=== PATIENT | female | born 1965 | race Caucasian/White ===

== ENCOUNTER 2017-09-18 06:27 | Day surgery (SDC) | payer OTHER ==
[~2017-09-18] VITALS: Ht 165.1 cm; Wt 70.5 kg
[~2017-09-18 06:27] MED LIST: ALBU6.7H INH; AMBI10TA PO; AMLO10 PO; ASPI-516 CHEW; ATOR80TA PO; BENA25CA4 PO; CARD240C6 PO; CARD4TAB2 PO; CARV3.125 PO; CITA-48 PO; CLAR10TA7 PO; CLON-352 PO; CLON0.1T PO; DEXI60CA3 PO; DIPH50TA PO; DOXA1 PO; EPIP0.3I IM; EPIP0.3I SQ; HYDR-3580 PO; HYDR25TA5 PO; INSU100V3 SQ; IPRASOL INH; LANTUS2P SQ; LEVA500T33 PO; LEVEMIR SQ; LIPI10TA PO; LORA0.5T PO; METO10TA PO; MONT10TA2 PO; NOVORP2 SQ; OXYGENDME NAS.CANULA; PRED20 PO; PROC25SU22 RECTAL; PROT40TA PO; SPIRCAP INH; SYMB160A INH; SYMB80AE INH; TRAZ50TA12 PO; VIST25CA PO; Z.0.OXYGENDME NC; ZANT150T2 PO; [UNRECOGNIZED DRUG - CODE] SQ
[2017-09-18 06:49] VITALS: BP 136/93; PULSE 94; RESP 18; TEMP 97.7; O2SAT 95
[2017-09-18] MEDS ORDERED: CHLORHEXIDINE GLUCONATE 2 % 1 PACK (2 CLOTHS) TOPICAL SCH (07:00)
[2017-09-18] MEDS ORDERED: SODIUM CHLORIDE 0.9% 1000 ML IV SCH (07:00)
[2017-09-18] MEDS ORDERED: VANCOMYCIN 1000 MG/NS 250 ML - implanted port/tunneled catheter IV SCH ×2 (07:00)
[2017-09-18] MEDS ORDERED: FLUT50SP EACH NARE (07:08)
[2017-09-18] MEDS ORDERED: BUPR150T5 PO (07:08)
[2017-09-18] MEDS ORDERED: VICT18IN SQ (07:08)
[2017-09-18] MEDS ORDERED: LORA0.5T PO (07:08)
[2017-09-18] MEDS ORDERED: BENA25CA4 (07:08)
[2017-09-18] MEDS ORDERED: [UNRECOGNIZED DRUG - CODE] (07:08)
[2017-09-18] MEDS ORDERED: SPIR25TA3 PO (07:08)
[2017-09-18] MEDS ORDERED: HYDR-3799 PO (07:08)
[2017-09-18] MEDS ORDERED: ZOFR4TAB PO (07:08)
[2017-09-18 07:41] LABS: INTERNATIONAL NORMALIZED RATIO 1.1 RATIO; PROTHROMBIN TIME - PATIENT 10.7 SEC (9.8-11.6)
[2017-09-18] MEDS ORDERED: LIDOCAINE 1%/EPINEPHrine 1:100,000 SOLN 30 ML VIAL ONE (07:45)
[2017-09-18] MEDS ORDERED: fentaNYL CITRATE 250 MCG/5 ML AMP ONE (08:10)
[2017-09-18] MEDS ORDERED: MIDAZOLAM HCL 5 MG/5 ML VIAL ONE (08:10)
[2017-09-18 08:13] LABS: AUTOMATED NEUTROPHIL # 4.6 TH/MM3 (1.8-7.7); BASOPHIL # 0.1 TH/MM3 (0-0.2); BASOPHIL % 0.8 % (0.0-2.0); EOSINOPHIL # 0.1 TH/MM3 (0-0.4); EOSINOPHIL % 1.1 % (0.0-4.0); HEMATOCRIT 41.3 % (35.0-46.0); HEMOGLOBIN 14.4 GM/DL (11.6-15.3); LYMPH % 29.5 % (9.0-44.0); LYMPHOCYTE # 2.2 TH/MM3 (1.0-4.8); MEAN CELL VOLUME 87.5 FL (80.0-100.0); MEAN CORPUSCULAR HEMOGLOBIN 30.5 PG (27.0-34.0); MEAN CORPUSCULAR HGB CONC 34.9 % (32.0-36.0); MEAN PLATELET VOLUME 9.2 FL (7.0-11.0); MONO % 7.6 % (0.0-8.0); MONOCYTE # 0.6 TH/MM3 (0-0.9); PLATELET COUNT 268 TH/MM3 (150-450); RED BLOOD COUNT 4.72 MIL/MM3 (4.00-5.30); RED CELL DISTRIBUTION WIDTH 12.9 % (11.6-17.2); WHITE BLOOD COUNT 7.5 TH/MM3 (4.0-11.0)
[2017-09-18 09:00] VITALS: BP 136/81; PULSE 107; RESP 16; TEMP 97.5; O2SAT 93
[2017-09-18 09:15] VITALS: BP 126/85; PULSE 96; RESP 16; O2SAT 93
[2017-09-18] MEDS ORDERED: SODIUM CHLORIDE 0.9% FLUSH 10 ML FLUSH IVF PRN (09:15)
[2017-09-18 09:45] VITALS: BP 104/69; PULSE 96; RESP 16; O2SAT 92
--- NOTE | 2017-09-18 10:03 | RADRPT ---
EXAM DATE: 09/18/2017 9:08 AM EDT AGE/SEX: 51 years / Female INDICATIONS: Patient presents with pulmonary eosinophilia and is in need of a port placement for jose atment. CLINICAL DATA: This is the patient's initial encounter. Patient reports that signs and symptoms have been present for 4 - 6 months and indicates a pain score of 0/10. MEDICAL/SURGICAL HISTORY: Asthma. Hypertension. DepressionSleep ApneaHyperlipidemiaDiabetic ty pe IIGERDHyperaldosteronismOvarian Cancer Hysterectomy. COMPARISON: No prior exams available for comparison. IMAGE SERIES: 0 SEDATION TIME (min): 30 MEDICATION(S): 2.5mg midazolam (Versed) IV 125mcg fentanyl (Sublimaze) IV DEVICE(S): Right 8F Power Port . . PROCEDURE : 1. Continuous pulse oximetry and EKG monitoring. 2. Intravenous conscious sedation. 3. Ultrasound guidance for venous access. The patient was placed supine. The neck was prepped in sterile fashion. Full sterile technique was u sed, including cap, mask, sterile gloves and gown, and a large sterile sheet. Hand hygiene and 2% ch lorhexidine Betadine was utilized per protocol for cutaneous antisepsis with appropriate dry time for site. Sterile gel and sterile probe cover were utilized for ultrasound guidance. The skin and sub cutaneous tissues were infiltrated with local anesthetic solution. Under direct ultrasound guidance, central venous access was accomplished in the targeted vessel. The ultrasound images depicting access guidance were stored and saved to PACS for permanent record. A s ubcutaneous pocket was created using blunt dissection. The port was introduced to the pocket. The c atheter tubing was fed through a subcutaneous tunnel to the venotomy site. The catheter tubing was c ut to a suitable length and then was introduced through a valved Peel-Away sheath and positioned with catheter tubing tip at the cavo-atrial junction level. The pocket incision was closed with subcutic ular Vicryl suture. Steri-Strips were applied. The port was flushed and locked with heparin solutio n per protocol. Sterile dressing was applied to the site. The patient tolerated the procedure well. Postprocedure chest radiograph reveals good positioning of the port with no complication. Conscious sedation was performed with the prescribed dosages and duration as above in the presence of an independent trained radiology nurse to assist in the monitoring of the patient. EKG and oximetry remained stable throughout the procedure. The patient tolerated the procedure well and there were no complications. The patient was sent to post anesthesia recovery in stable condition. CONCLUSION: Uncomplicated ultrasound guided implanted central venous port catheter placement as described in [place] above. An 8 [place] Power port was placed. Electronically signed by: Tony Reilly MD 09/18/2017 10:01 AM EDT
[2017-09-18 10:15] VITALS: BP 103/70; PULSE 92; RESP 16; O2SAT 96
--- NOTE | 2017-09-18 11:03 | RADRPT ---
EXAM DATE: 09/18/2017 9:26 AM EDT AGE/SEX: 51 years / Female INDICATIONS: Post central line placement. CLINICAL DATA: This is the patient's initial encounter. Patient reports that signs and symptoms have been present for 1 day and indicates a pain score of 0/10. MEDICAL/SURGICAL HISTORY: . Chronic obstructive pulmonary disease. asthma. . Zfwxa-a-cuff. COMPARISON: [facility], CHEST SINGLE AP, 07/25/2015. . FINDINGS: Jovifm-i-Eesj in good position. A second central line is not visualized. No pneumothorax. Lungs are c lear. The heart and pulmonary vascularity are normal. CONCLUSION: Tzuxau-h-Nlbq in good position. No pneumothorax. A second central line is not visualized. Electronically signed by: Mina Holcomb MD 09/18/2017 11:01 AM EDT
== END 2017-09-18 09:00 | disposition home or self-care (01) ==
LOC: HRIP 06:27 → HROP 06:27
PROVIDERS: ATTEND Family Medicine
DX: J82 Pulmonary eosinophilia, not elsewhere classified (principal); E78.5 Hyperlipidemia, unspecified; K21.9 Gastro-esophageal reflux disease without esophagitis; E26.9 Hyperaldosteronism, unspecified; G47.30 Sleep apnea, unspecified; F32.9 Major depressive disorder, single episode, unspecified; J44.9 Chronic obstructive pulmonary disease, unspecified; E87.1 Hypo-osmolality and hyponatremia; E11.42 Type 2 diabetes mellitus with diabetic polyneuropathy; E11.65 Type 2 diabetes mellitus with hyperglycemia; I20.9 Angina pectoris, unspecified; Z79.4 Long term (current) use of insulin; N18.2 Chronic kidney disease, stage 2 (mild); I13.10 Hypertensive heart and chronic kidney disease without heart failure, with stage 1 through stage 4 chronic kidney disease, or unspecified chronic kidney disease; E11.22 Type 2 diabetes mellitus with diabetic chronic kidney disease; F41.1 Generalized anxiety disorder; K76.0 Fatty (change of) liver, not elsewhere classified; R00.0 Tachycardia, unspecified; L50.0 Allergic urticaria; Z01.818 Encounter for other preprocedural examination
CPT/HCPCS: 36561; 71045; 76937; 77001; 85025; 85610; 85730; 99152; 99153; C1788; J1642; J2250; J3010; J3370; J7030; J7050

== ENCOUNTER 2018-01-29 17:33 | Inpatient (IN) ==
[2018-01-29] MEDS ORDERED: MethylPREDNISolone Sod Succinate Inj 125 MG/2 ML Vial IV.PUSH ONE (21:28)
[2018-01-29] MEDS ORDERED: Sod Chloride 0.9% Inj 1,000 ML IV.SIG SCH (21:30)
--- NOTE | 2018-01-29 22:01 | XR ---
EXAM DATE: 01/29/2018 9:57 PM EDT AGE/SEX: 52 years / Female INDICATIONS: Fever. Short of breath. CLINICAL DATA: This is the patient's initial encounter. Patient reports that signs and symptoms have been present for 1 day and indicates a pain score of 4/10. MEDICAL/SURGICAL HISTORY: . Chronic obstructive pulmonary disease. asthma. . Pyxxb-a-hbjb. COMPARISON: [facility], CHEST SINGLE AP, 09/18/2017. . FINDINGS: A single AP view of the chest demonstrates the lungs to be symmetrically aerated without evidence of mass, infiltrate or effusion. The cardiomediastinal contours are unremarkable. Osseous structures a re intact. Right IJ Wujnmb-b-Gtzr catheter with the tip projecting over the central venous system. CONCLUSION: No acute cardiopulmonary process. Electronically signed by: Isauro Kenney MD 01/29/2018 10:00 PM EDT
--- NOTE | 2018-01-29 22:08 | ED ---
HPI General Chief Complaint: Respiratory Symptoms Stated Complaint: pain in joints, cough Time Seen by Provider: 01/29/18 21:17 Source: patient and old records reviewed Mode of arrival: ambulatory Limitations: no limitations History of Present Illness MD Complaint: Reports cough Onset (ago): day(s) (4) Consistency/Duration: constant and progressively worsening Relieving factors: nothing Exacerbating factors: nothing Known history of: Reports COPD and diabetes Associated symptoms: Reports fever, cough, nausea/vomiting and other ( Arthralgias and myalgias) Treatment prior to arrival: Reports oxygen, bronchodilator and other (Prednisone ) Related Data Home oxygen amount: 2 liters Home Medications Medication Instructions Recorded Confirmed aspirin 81 mg PO DAILY 01/30/18 01/30/18 budesonide-formoterol [Symbicort] 2 puff INHALATION BID 01/30/18 01/30/18 clonidine HCl 0.1 mg PO DAILY PRN 01/30/18 01/30/18 diphenhydramine HCl [Benadryl] 25 mg PO DAILY PRN MDD 25mg 01/30/18 01/30/18 doxazosin [Cardura XL] 25 mg PO DAILY 01/30/18 01/30/18 epinephrine [EpiPen] 0.3 mg IM Q15M PRN MDD .9mg 01/30/18 01/30/18 hydrochlorothiazide 25 mg PO DAILY 01/30/18 01/30/18 insulin degludec [Tresiba 60 unit SUBCUT DAILY 01/30/18 01/30/18 FlexTouch U-100] lansoprazole [Prevacid 24Hr] 15 mg PO DAILY 01/30/18 01/30/18 liraglutide [Victoza 2-Brown] 50 mg SUBCUT DAILY 01/30/18 01/30/18 prednisone 20 mg PO BID 01/30/18 01/30/18 Allergies Allergy/AdvReac Type Severity Reaction Status Date / Time azithromycin Allergy Severe Verified 09/18/17 06:49 banana Allergy Severe Verified 09/18/17 06:49 benazepril Allergy Severe Verified 09/18/17 06:49 captopril Allergy Severe Verified 09/18/17 06:49 egg Allergy Severe Verified 09/18/17 06:49 enalaprilat Allergy Severe Verified 09/18/17 06:49 escitalopram Allergy Severe Verified 09/18/17 06:49 fosinopril Allergy Severe Verified 09/18/17 06:49 iodine Allergy Severe Verified 09/18/17 06:49 lisinopril Allergy Severe Verified 09/18/17 06:49 losartan Allergy Severe Verified 09/18/17 06:49 penicillin G Allergy Severe SOB Verified 09/18/17 06:49 potassium iodide Allergy Severe Verified 09/18/17 06:49 povidone-iodine Allergy Severe Verified 09/18/17 06:49 quinapril Allergy Severe Verified 09/18/17 06:49 sodium iodide Allergy Severe Verified 09/18/17 06:49 sodium iodide Allergy Severe Verified 09/18/17 06:49 *MDRO Multi-Drug Resistant AdvReac Unknown Uncoded 09/18/17 06:49 Organism Review of Systems ROS: all other systems reviewed are negative [facility] Medical History Medical History COPD (chronic obstructive pulmonary disease) (Chronic) Diabetes (Chronic) Hypertension (Chronic) Family History Family History Other Hypertension Lung disease Social History Social History Substance History: No History of Abuse Second Hand Smoke Exposure: No Smoking Status: Never smoker Tobacco Type: Cigarettes How Often Do You Have a Drink Containing Alcohol: Never Recent Travel in [facility] within the Last 8 Weeks: No Recent Out of Country Travel within the Last 8 Weeks: No Exam Const General: cooperative, healthy appearing, comfortable, no acute distress, well developed and well groomed Orientation: alert, awake and oriented x3 HENMT Head: normal to inspection, normocephalic and atraumatic Eyes Alignment and Position: alignment normal Conjunctivae: conjunctivae normal Sclera: sclerae normal EOM: EOM intact bilaterally Neck Neck: normal visual inspection and full ROM Chest Chest: normal inspection of the chest Resp Effort & Inspection: normal respiratory effort and labored Auscultation: diminished lung sounds and wheezes Cardio Rate: tachycardic Rhythm: regular rhythm GI Inspection: normal to inspection Palpation: soft Back/Spine/Pelvis Cervical Spine: cervical ROM normal Thoracic/Lumbar Spine: thoraco-lumbar ROM normal Skin General: no rashes or lesions noted and turgor normal Neuro General: alert, awake, oriented x3, moves all extremities and CN's II-XI intact bilaterally Extrem General: normal to inspection and full ROM Psych Appearance: grossly normal Mental Status: mental status grossly normal Speech and Movement: speech and movement normal Mood: congruent mood Affect: normal affect Attitude: cooperative Thought Process: normal Thought Content: normal Judgment: judgment good Course Initial Documented Vital Signs Temperature 98.5 F 01/29/18 17:58 Pulse Rate 122 H 01/29/18 17:58 Respiratory Rate 20 01/29/18 17:58 Blood Pressure 134/99 H 01/29/18 17:58 Pulse Oximetry 96 01/29/18 17:58 Last Documented Vital Signs Temperature 97.8 F 02/01/18 08:00 Pulse Rate 92 H 02/01/18 12:22 Respiratory Rate 16 02/01/18 12:22 Blood Pressure 181/86 H 02/01/18 08:00 Pulse Oximetry 96 02/01/18 08:00 Medical Decision Making MDM Narrative Medical decision making narrative: This is a patient with a history of COPD who presents complaining with about a 4-day history of cough associated with myalgias, arthralgias, subjective fever and nausea/vomiting/diarrhea. On exam, she is tachycardic. Lungs have diminished breath sounds with wheezing. Septic workup has been initiated. She is being treated with stacked duo nebs and IV Solu-Medrol. On reassesment patient continues to wheeze significantly. Labs demonstrate an elevated lactic acid which I suspect is in the setting of dehydration in the absence of other sirs criteria. Chest x-ray was negative for pneumonia. Patient was given a dose of Levaquin in the setting of COPD exacerbation. She will be admitted for continued respiratory management. Medical Screen Exam Complete: Yes Emergency Medical Condition: Yes Differential Diagnosis Differential Diagnosis: Differential diagnosis of dyspnea includes but is not limited to congestive heart failure, pneumonia, wheezing, pneumothorax, pulmonary embolism Medical Records Medical records reviewed: Yes I reviewed the patient's medical records. Lab Data Result diagrams: 01/31/18 04:20 01/31/18 04:20 Lab Results 01/29/18 01/29/18 01/29/18 Range/Units 22:45 22:48 22:48 WBC 10.5 (4.0-11.0) th/mm3 RBC 4.81 (4.00-5.30) mil/mm3 Hgb 15.0 (11.6-15.3) gm/dL Hct 42.6 (35.0-46.0) % MCV 88.6 (80.0-100.0) fL MCH 31.3 (27.0-34.0) pg MCHC 35.3 (32.0-36.0) % RDW 13.1 (11.6-17.2) % Plt Count 306 (150-450) th/mm3 MPV 8.7 (7.0-11.0) fL Neut % (Auto) 63.4 (16.0-70.0) % Lymph % (Auto) 21.9 (9.0-44.0) % [place] % (Auto) 14.1 H (0.0-8.0) % Eos % (Auto) 0.1 (0.0-4.0) % Baso % (Auto) 0.5 (0.0-2.0) % Neut # (Auto) 6.7 (1.8-7.7) th/mm3 Lymph # (Auto) 2.3 (1.0-4.8) th/mm3 [place] # (Auto) 1.5 H (0.0-0.9) th/mm3 Eos # (Auto) 0.0 (0.0-0.4) th/mm3 Baso # (Auto) 0.1 (0.0-0.2) th/mm3 WBC Differential . Differential Comment Auto diff final Puncture Site Patient Temperature O2 Saturation (90-100) % ABG pH (7.380-7.420) ABG pCO2 (38-42) mmHg ABG pO2 (61-120) mmHg ABG HCO3 (22-26) mmol/L ABG O2 Content (12.0-20.0) Vol % ABG Base Excess (-2-2) mmol/L ABG Methemoglobin (0-2) % Gomez Test Hemoglobin (12.0-16.0) G/DL Carboxyhemoglobin (0-4) % O2 Delivery Device Liter Flow L/M Critical Value Sodium 130 L (136-145) meq/L Potassium 3.3 L (3.5-5.1) meq/L Chloride 91 L (98-107) meq/L Carbon Dioxide 25.3 (21.0-32.0) meq/L Anion Gap 14 (5-15) meq/L BUN 16 (7-18) mg/dL Creatinine 1.34 H (0.50-1.00) mg/dL Estimated GFR 41 L (>89) mL/min POC Glucose (68-110) mg/dl Random Glucose 433 H (74-106) mg/dL Lactic Acid 3.5 H (0.4-2.0) mmol/L Calcium 9.0 (8.5-10.1) mg/dL Magnesium 1.6 (1.5-2.5) mg/dL Total Bilirubin 0.3 (0.2-1.0) mg/dL AST 17 (15-37) U/L ALT 28 (10-53) U/L Alkaline Phosphatase 114 (45-117) U/L Troponin I Less than 0.02 L (0.02-0.05) ng/mL Total Protein 8.5 H (6.4-8.2) g/dL Albumin 3.5 (3.4-5.0) g/dL Urine Color (Yellw/Straw) Urine Clarity (Clear) Urine pH (5.0-8.5) Ur Specific [place] (1.002-1.035) Urine Protein (Neg-Trace) mg/dL Urine Glucose (UA) (Negative) mg/dL Urine Ketones (Negative) mg/dL Urine Occult Blood (Negative) Urine Nitrate (Negative) Urine Bilirubin (Negative) Urine Urobilinogen (Less than 2) mg/dL Ur Leukocyte Esterase (Negative) Urine RBC (0-3) /hpf Urine WBC (0-5) /hpf Ur Squamous Epith Cells (0-5) /hpf Ur Transition Epith Cell (None) /hpf Ur Renal Epithelial Cell (None) /hpf Urine Bacteria (None) /hpf Hyaline Casts (0-3) /lpf Urine Mucus (Occasional) /lpf Micro UA Comment Ur Microscopic Review Urine Culture Comments Nasal Screen MRSA (PCR) (Negative) 01/30/18 01/30/18 01/30/18 Range/Units 00:02 00:06 01:52 WBC (4.0-11.0) th/mm3 RBC (4.00-5.30) mil/mm3 Hgb (11.6-15.3) gm/dL Hct (35.0-46.0) % MCV (80.0-100.0) fL MCH (27.0-34.0) pg MCHC (32.0-36.0) % RDW (11.6-17.2) % Plt Count (150-450) th/mm3 MPV (7.0-11.0) fL Neut % (Auto) (16.0-70.0) % Lymph % (Auto) (9.0-44.0) % [place] % (Auto) (0.0-8.0) % Eos % (Auto) (0.0-4.0) % Baso % (Auto) (0.0-2.0) % Neut # (Auto) (1.8-7.7) th/mm3 Lymph # (Auto) (1.0-4.8) th/mm3 [place] # (Auto) (0.0-0.9) th/mm3 Eos # (Auto) (0.0-0.4) th/mm3 Baso # (Auto) (0.0-0.2) th/mm3 WBC Differential Differential Comment Puncture Site Patient Temperature O2 Saturation (90-100) % ABG pH (7.380-7.420) ABG pCO2 (38-42) mmHg ABG pO2 (61-120) mmHg ABG HCO3 (22-26) mmol/L ABG O2 Content (12.0-20.0) Vol % ABG Base Excess (-2-2) mmol/L ABG Methemoglobin (0-2) % Gomez Test Hemoglobin (12.0-16.0) G/DL Carboxyhemoglobin (0-4) % O2 Delivery Device Liter Flow L/M Critical Value Sodium (136-145) meq/L Potassium (3.5-5.1) meq/L Chloride (98-107) meq/L Carbon Dioxide (21.0-32.0) meq/L Anion Gap (5-15) meq/L BUN (7-18) mg/dL Creatinine (0.50-1.00) mg/dL Estimated GFR (>89) mL/min POC Glucose 425 H (68-110) mg/dl Random Glucose (74-106) mg/dL Lactic Acid 4.6 H* (0.4-2.0) mmol/L Calcium (8.5-10.1) mg/dL Magnesium (1.5-2.5) mg/dL Total Bilirubin (0.2-1.0) mg/dL AST (15-37) U/L ALT (10-53) U/L Alkaline Phosphatase (45-117) U/L Troponin I (0.02-0.05) ng/mL Total Protein (6.4-8.2) g/dL Albumin (3.4-5.0) g/dL Urine Color Yellow (Yellw/Straw) Urine Clarity Cloudy H (Clear) Urine pH 6.0 (5.0-8.5) Ur Specific [place] 1.021 (1.002-1.035) Urine Protein 30 H (Neg-Trace) mg/dL Urine Glucose (UA) 500 or greater (Negative) mg/dL Urine Ketones Negative (Negative) mg/dL Urine Occult Blood Small H (Negative) Urine Nitrate Negative (Negative) Urine Bilirubin Negative (Negative) Urine Urobilinogen Less than 2 (Less than 2) mg/dL Ur Leukocyte Esterase Large H (Negative) Urine RBC 10 H (0-3) /hpf Urine WBC 123 H (0-5) /hpf Ur Squamous Epith Cells 6 (0-5) /hpf Ur Transition Epith Cell 2 (None) /hpf Ur Renal Epithelial Cell 1 (None) /hpf Urine Bacteria Occasional H (None) /hpf Hyaline Casts 23 (0-3) /lpf Urine Mucus Moderate H (Occasional) /lpf Micro UA Comment Culture indicated Ur Microscopic Review Not Reportable Urine Culture Comments Culture indicated Nasal Screen MRSA (PCR) (Negative) 01/30/18 01/30/18 01/30/18 Range/Units 07:00 08:19 10:06 WBC 8.7 (4.0-11.0) th/mm3 RBC 4.35 (4.00-5.30) mil/mm3 Hgb 13.5 (11.6-15.3) gm/dL Hct 40.3 (35.0-46.0) % MCV 92.7 D (80.0-100.0) fL MCH 31.1 (27.0-34.0) pg MCHC 33.5 (32.0-36.0) % RDW 13.3 (11.6-17.2) % Plt Count 265 (150-450) th/mm3 MPV 8.8 (7.0-11.0) fL Neut % (Auto) (16.0-70.0) % Lymph % (Auto) (9.0-44.0) % [place] % (Auto) (0.0-8.0) % Eos % (Auto) (0.0-4.0) % Baso % (Auto) (0.0-2.0) % Neut # (Auto) (1.8-7.7) th/mm3 Lymph # (Auto) (1.0-4.8) th/mm3 [place] # (Auto) (0.0-0.9) th/mm3 Eos # (Auto) (0.0-0.4) th/mm3 Baso # (Auto) (0.0-0.2) th/mm3 WBC Differential Differential Comment Puncture Site Patient Temperature O2 Saturation (90-100) % ABG pH (7.380-7.420) ABG pCO2 (38-42) mmHg ABG pO2 (61-120) mmHg ABG HCO3 (22-26) mmol/L ABG O2 Content (12.0-20.0) Vol % ABG Base Excess (-2-2) mmol/L ABG Methemoglobin (0-2) % Gomez Test Hemoglobin (12.0-16.0) G/DL Carboxyhemoglobin (0-4) % O2 Delivery Device Liter Flow L/M Critical Value Sodium (136-145) meq/L Potassium (3.5-5.1) meq/L Chloride (98-107) meq/L Carbon Dioxide (21.0-32.0) meq/L Anion Gap (5-15) meq/L BUN (7-18) mg/dL Creatinine (0.50-1.00) mg/dL Estimated GFR (>89) mL/min POC Glucose 530 H* (68-110) mg/dl Random Glucose (74-106) mg/dL Lactic Acid 2.5 H (0.4-2.0) mmol/L Calcium (8.5-10.1) mg/dL Magnesium (1.5-2.5) mg/dL Total Bilirubin (0.2-1.0) mg/dL AST (15-37) U/L ALT (10-53) U/L Alkaline Phosphatase (45-117) U/L Troponin I (0.02-0.05) ng/mL Total Protein (6.4-8.2) g/dL Albumin (3.4-5.0) g/dL Urine Color (Yellw/Straw) Urine Clarity (Clear) Urine pH (5.0-8.5) Ur Specific [place] (1.002-1.035) Urine Protein (Neg-Trace) mg/dL Urine Glucose (UA) (Negative) mg/dL Urine Ketones (Negative) mg/dL Urine Occult Blood (Negative) Urine Nitrate (Negative) Urine Bilirubin (Negative) Urine Urobilinogen (Less than 2) mg/dL Ur Leukocyte Esterase (Negative) Urine RBC (0-3) /hpf Urine WBC (0-5) /hpf Ur Squamous Epith Cells (0-5) /hpf Ur Transition Epith Cell (None) /hpf Ur Renal Epithelial Cell (None) /hpf Urine Bacteria (None) /hpf Hyaline Casts (0-3) /lpf Urine Mucus (Occasional) /lpf Micro UA Comment Ur Microscopic Review Urine Culture Comments Nasal Screen MRSA (PCR) (Negative) 01/30/18 01/30/18 01/30/18 Range/Units 10:06 12:44 12:54 WBC (4.0-11.0) th/mm3 RBC (4.00-5.30) mil/mm3 Hgb (11.6-15.3) gm/dL Hct (35.0-46.0) % MCV (80.0-100.0) fL MCH (27.0-34.0) pg MCHC (32.0-36.0) % RDW (11.6-17.2) % Plt Count (150-450) th/mm3 MPV (7.0-11.0) fL Neut % (Auto) (16.0-70.0) % Lymph % (Auto) (9.0-44.0) % [place] % (Auto) (0.0-8.0) % Eos % (Auto) (0.0-4.0) % Baso % (Auto) (0.0-2.0) % Neut # (Auto) (1.8-7.7) th/mm3 Lymph # (Auto) (1.0-4.8) th/mm3 [place] # (Auto) (0.0-0.9) th/mm3 Eos # (Auto) (0.0-0.4) th/mm3 Baso # (Auto) (0.0-0.2) th/mm3 WBC Differential Differential Comment Puncture Site Left radial Patient Temperature 98.6 O2 Saturation 95 (90-100) % ABG pH 7.43 H (7.380-7.420) ABG pCO2 36 L (38-42) mmHg ABG pO2 90 (61-120) mmHg ABG HCO3 23 (22-26) mmol/L ABG O2 Content 18.7 (12.0-20.0) Vol % ABG Base Excess -0.6 (-2-2) mmol/L ABG Methemoglobin 1.3 (0-2) % Gomez Test Present Hemoglobin 14.0 (12.0-16.0) G/DL Carboxyhemoglobin 1.1 (0-4) % O2 Delivery Device Nasal cannula Liter Flow 2.00 L/M Critical Value No Sodium 132 L (136-145) meq/L Potassium 4.0 (3.5-5.1) meq/L Chloride 97 L (98-107) meq/L Carbon Dioxide 23.1 (21.0-32.0) meq/L Anion Gap 12 (5-15) meq/L BUN 16 (7-18) mg/dL Creatinine 1.17 H (0.50-1.00) mg/dL Estimated GFR 48 L (>89) mL/min POC Glucose 489 H* (68-110) mg/dl Random Glucose 718 H* D (74-106) mg/dL Lactic Acid (0.4-2.0) mmol/L Calcium 8.3 L (8.5-10.1) mg/dL Magnesium (1.5-2.5) mg/dL Total Bilirubin (0.2-1.0) mg/dL AST (15-37) U/L ALT (10-53) U/L Alkaline Phosphatase (45-117) U/L Troponin I (0.02-0.05) ng/mL Total Protein (6.4-8.2) g/dL Albumin (3.4-5.0) g/dL Urine Color (Yellw/Straw) Urine Clarity (Clear) Urine pH (5.0-8.5) Ur Specific [place] (1.002-1.035) Urine Protein (Neg-Trace) mg/dL Urine Glucose (UA) (Negative) mg/dL Urine Ketones (Negative) mg/dL Urine Occult Blood (Negative) Urine Nitrate (Negative) Urine Bilirubin (Negative) Urine Urobilinogen (Less than 2) mg/dL Ur Leukocyte Esterase (Negative) Urine RBC (0-3) /hpf Urine WBC (0-5) /hpf Ur Squamous Epith Cells (0-5) /hpf Ur Transition Epith Cell (None) /hpf Ur Renal Epithelial Cell (None) /hpf Urine Bacteria (None) /hpf Hyaline Casts (0-3) /lpf Urine Mucus (Occasional) /lpf Micro UA Comment Ur Microscopic Review Urine Culture Comments Nasal Screen MRSA (PCR) (Negative) 01/30/18 01/30/18 01/30/18 Range/Units 15:02 15:30 16:04 WBC (4.0-11.0) th/mm3 RBC (4.00-5.30) mil/mm3 Hgb (11.6-15.3) gm/dL Hct (35.0-46.0) % MCV (80.0-100.0) fL MCH (27.0-34.0) pg MCHC (32.0-36.0) % RDW (11.6-17.2) % Plt Count (150-450) th/mm3 MPV (7.0-11.0) fL Neut % (Auto) (16.0-70.0) % Lymph % (Auto) (9.0-44.0) % [place] % (Auto) (0.0-8.0) % Eos % (Auto) (0.0-4.0) % Baso % (Auto) (0.0-2.0) % Neut # (Auto) (1.8-7.7) th/mm3 Lymph # (Auto) (1.0-4.8) th/mm3 [place] # (Auto) (0.0-0.9) th/mm3 Eos # (Auto) (0.0-0.4) th/mm3 Baso # (Auto) (0.0-0.2) th/mm3 WBC Differential Differential Comment Puncture Site Patient Temperature O2 Saturation (90-100) % ABG pH (7.380-7.420) ABG pCO2 (38-42) mmHg ABG pO2 (61-120) mmHg ABG HCO3 (22-26) mmol/L ABG O2 Content (12.0-20.0) Vol % ABG Base Excess (-2-2) mmol/L ABG Methemoglobin (0-2) % Gomez Test Hemoglobin (12.0-16.0) G/DL Carboxyhemoglobin (0-4) % O2 Delivery Device Liter Flow L/M Critical Value Sodium (136-145) meq/L Potassium (3.5-5.1) meq/L Chloride (98-107) meq/L Carbon Dioxide (21.0-32.0) meq/L Anion Gap (5-15) meq/L BUN (7-18) mg/dL Creatinine (0.50-1.00) mg/dL Estimated GFR (>89) mL/min POC Glucose 436 H 399 H (68-110) mg/dl Random Glucose (74-106) mg/dL Lactic Acid (0.4-2.0) mmol/L Calcium (8.5-10.1) mg/dL Magnesium (1.5-2.5) mg/dL Total Bilirubin (0.2-1.0) mg/dL AST (15-37) U/L ALT (10-53) U/L Alkaline Phosphatase (45-117) U/L Troponin I (0.02-0.05) ng/mL Total Protein (6.4-8.2) g/dL Albumin (3.4-5.0) g/dL Urine Color (Yell[place]/Straw) Urine Clarity (Clear) Urine pH (5.0-8.5) Ur Specific [place] (1.002-1.035) Urine Protein (Neg-Trace) mg/dL Urine Glucose (UA) (Negative) mg/dL Urine Ketones (Negative) mg/dL Urine Occult Blood (Negative) Urine Nitrate (Negative) Urine Bilirubin (Negative) Urine Urobilinogen (Less than 2) mg/dL Ur Leukocyte Esterase (Negative) Urine RBC (0-3) /hpf Urine WBC (0-5) /hpf Ur Squamous Epith Cells (0-5) /hpf Ur Transition Epith Cell (None) /hpf Ur Renal Epithelial Cell (None) /hpf Urine Bacteria (None) /hpf Hyaline Casts (0-3) /lpf Urine Mucus (Occasional) /lpf Micro UA Comment Ur Microscopic Review Urine Culture Comments Nasal Screen MRSA (PCR) Not detected (Negative) 01/30/18 01/30/1801/30/18 Range/Units 17:04 18:00 18:55 WBC (4.0-11.0) th/mm3 RBC (4.00-5.30) mil/mm3 Hgb (11.6-15.3) gm/dL Hct (35.0-46.0) % MCV (80.0-100.0) fL MCH (27.0-34.0) pg MCHC (32.0-36.0) % RDW (11.6-17.2) % Plt Count (150-450) th/mm3 MPV (7.0-11.0) fL Neut % (Auto) (16.0-70.0) % Lymph % (Auto) (9.0-44.0) % [place] % (Auto) (0.0-8.0) % Eos % (Auto) (0.0-4.0) % Baso % (Auto) (0.0-2.0) % Neut # (Auto) (1.8-7.7) th/mm3 Lymph # (Auto) (1.0-4.8) th/mm3 [place] # (Auto) (0.0-0.9) th/mm3 Eos # (Auto) (0.0-0.4) th/mm3 Baso # (Auto) (0.0-0.2) th/mm3 WBC Differential Differential Comment Puncture Site Patient Temperature O2 Saturation (90-100) % ABG pH (7.380-7.420) ABG pCO2 (38-42) mmHg ABG pO2 (61-120) mmHg ABG HCO3 (22-26) mmol/L ABG O2 Content (12.0-20.0) Vol % ABG Base Excess (-2-2) mmol/L ABG Methemoglobin (0-2) % Gomez Test Hemoglobin (12.0-16.0) G/DL Carboxyhemoglobin (0-4) % O2 Delivery Device Liter Flow L/M Critical Value Sodium (136-145) meq/L Potassium (3.5-5.1) meq/L Chloride (98-107) meq/L Carbon Dioxide (21.0-32.0) meq/L Anion Gap (5-15) meq/L BUN (7-18) mg/dL Creatinine (0.50-1.00) mg/dL Estimated GFR (>89) mL/min POC Glucose 350 H 298 H 285 H (68-110) mg/dl Random Glucose (74-106) mg/dL Lactic Acid (0.4-2.0) mmol/L Calcium (8.5-10.1) mg/dL Magnesium (1.5-2.5) mg/dL Total Bilirubin (0.2-1.0) mg/dL AST (15-37) U/L ALT (10-53) U/L Alkaline Phosphatase (45-117) U/L Troponin I (0.02-0.05) ng/mL Total Protein (6.4-8.2) g/dL Albumin (3.4-5.0) g/dL Urine Color (Yellw/Straw) Urine Clarity (Clear) Urine pH (5.0-8.5) Ur Specific [place] (1.002-1.035) Urine Protein (Neg-Trace) mg/dL Urine Glucose (UA) (Negative) mg/dL Urine Ketones (Negative) mg/dL Urine Occult Blood (Negative) Urine Nitrate (Negative) Urine Bilirubin (Negative) Urine Urobilinogen (Less than 2) mg/dL Ur Leukocyte Esterase (Negative) Urine RBC (0-3) /hpf Urine WBC (0-5) /hpf Ur Squamous Epith Cells (0-5) /hpf Ur Transition Epith Cell (None) /hpf Ur Renal Epithelial Cell (None) /hpf Urine Bacteria (None) /hpf Hyaline Casts (0-3) /lpf Urine Mucus (Occasional) /lpf Micro UA Comment Ur Microscopic Review Urine Culture Comments Nasal Screen MRSA (PCR) (Negative) 01/30/18 01/30/18 01/30/18 Range/Units 20:18 21:15 22:34 WBC (4.0-11.0) th/mm3 RBC (4.00-5.30) mil/mm3 Hgb (11.6-15.3) gm/dL Hct (35.0-46.0) % MCV (80.0-100.0) fL MCH (27.0-34.0) pg MCHC (32.0-36.0) % RDW (11.6-17.2) % Plt Count (150-450) th/mm3 MPV (7.0-11.0) fL Neut % (Auto) (16.0-70.0) % Lymph % (Auto) (9.0-44.0) % [place] % (Auto) (0.0-8.0) % Eos % (Auto) (0.0-4.0) % Baso % (Auto) (0.0-2.0) % Neut # (Auto) (1.8-7.7) th/mm3 Lymph # (Auto) (1.0-4.8) th/mm3 [place] # (Auto) (0.0-0.9) th/mm3 Eos # (Auto) (0.0-0.4) th/mm3 Baso # (Auto) (0.0-0.2) th/mm3 WBC Differential Differential Comment Puncture Site Patient Temperature O2 Saturation (90-100) % ABG pH (7.380-7.420) ABG pCO2 (38-42) mmHg ABG pO2 (61-120) mmHg ABG HCO3 (22-26) mmol/L ABG O2 Content (12.0-20.0) Vol % ABG Base Excess (-2-2) mmol/L ABG Methemoglobin (0-2) % Gomez Test Hemoglobin (12.0-16.0) G/DL Carboxyhemoglobin (0-4) % O2 Delivery Device Liter Flow L/M Critical Value Sodium (136-145) meq/L Potassium (3.5-5.1) meq/L Chloride (98-107) meq/L Carbon Dioxide (21.0-32.0) meq/L Anion Gap (5-15) meq/L BUN (7-18) mg/dL Creatinine (0.50-1.00) mg/dL Estimated GFR (>89) mL/min POC Glucose 261 H 218 H 228 H (68-110) mg/dl Random Glucose (74-106) mg/dL Lactic Acid (0.4-2.0) mmol/L Calcium (8.5-10.1) mg/dL Magnesium (1.5-2.5) mg/dL Total Bilirubin (0.2-1.0) mg/dL AST (15-37) U/L ALT (10-53) U/L Alkaline Phosphatase (45-117) U/L Troponin I (0.02-0.05) ng/mL Total Protein (6.4-8.2) g/dL Albumin (3.4-5.0) g/dL Urine Color (Yellw/Straw) Urine Clarity (Clear) Urine pH (5.0-8.5) Ur Specific [place] (1.002-1.035) Urine Protein (Neg-Trace) mg/dL Urine Glucose (UA) (Negative) mg/dL Urine Ketones (Negative) mg/dL Urine Occult Blood (Negative) Urine Nitrate (Negative) Urine Bilirubin (Negative) Urine Urobilinogen (Less than 2) mg/dL Ur Leukocyte Esterase (Negative) Urine RBC (0-3) /hpf Urine WBC (0-5) /hpf Ur Squamous Epith Cells (0-5) /hpf Ur Transition Epith Cell (None) /hpf Ur Renal Epithelial Cell (None) /hpf Urine Bacteria (None) /hpf Hyaline Casts (0-3) /lpf Urine Mucus (Occasional) /lpf Micro UA Comment Ur Microscopic Review Urine Culture Comments Nasal Screen MRSA (PCR) (Negative) 01/31/18 01/31/18 01/31/18 Range/Units 00:03 01:26 01:55 WBC (4.0-11.0) th/mm3 RBC (4.00-5.30) mil/mm3 Hgb (11.6-15.3) gm/dL Hct (35.0-46.0) % MCV (80.0-100.0) fL MCH (27.0-34.0) pg MCHC (32.0-36.0) % RDW (11.6-17.2) % Plt Count (150-450) th/mm3 MPV (7.0-11.0) fL Neut % (Auto) (16.0-70.0) % Lymph % (Auto) (9.0-44.0) % [place] % (Auto) (0.0-8.0) % Eos % (Auto) (0.0-4.0) % Baso % (Auto) (0.0-2.0) % Neut # (Auto) (1.8-7.7) th/mm3 Lymph # (Auto) (1.0-4.8) th/mm3 [place] # (Auto) (0.0-0.9) th/mm3 Eos # (Auto) (0.0-0.4) th/mm3 Baso # (Auto) (0.0-0.2) th/mm3 WBC Differential Differential Comment Puncture Site Patient Temperature O2 Saturation (90-100) % ABG pH (7.380-7.420) ABG pCO2 (38-42) mmHg ABG pO2 (61-120) mmHg ABG HCO3 (22-26) mmol/L ABG O2 Content (12.0-20.0) Vol % ABG Base Excess (-2-2) mmol/L ABG Methemoglobin (0-2) % Gomez Test Hemoglobin (12.0-16.0) G/DL Carboxyhemoglobin (0-4) % O2 Delivery Device Liter Flow L/M Critical Value Sodium (136-145) meq/L Potassium (3.5-5.1) meq/L Chloride (98-107) meq/L Carbon Dioxide (21.0-32.0) meq/L Anion Gap (5-15) meq/L BUN (7-18) mg/dL Creatinine (0.50-1.00) mg/dL Estimated GFR (>89) mL/min POC Glucose 308 H 364 H 371 H (68-110) mg/dl Random Glucose (74-106) mg/dL Lactic Acid (0.4-2.0) mmol/L Calcium (8.5-10.1) mg/dL Magnesium (1.5-2.5) mg/dL Total Bilirubin (0.2-1.0) mg/dL AST (15-37) U/L ALT (10-53) U/L Alkaline Phosphatase (45-117) U/L Troponin I (0.02-0.05) ng/mL Total Protein (6.4-8.2) g/dL Albumin (3.4-5.0) g/dL Urine Color (Yellw/Straw) Urine Clarity (Clear) Urine pH (5.0-8.5) Ur Specific [place] (1.002-1.035) Urine Protein (Neg-Trace) mg/dL Urine Glucose (UA) (Negative) mg/dL Urine Ketones (Negative) mg/dL Urine Occult Blood (Negative) Urine Nitrate (Negative) Urine Bilirubin (Negative) Urine Urobilinogen (Less than 2) mg/dL Ur Leukocyte Esterase (Negative) Urine RBC (0-3) /hpf Urine WBC (0-5) /hpf Ur Squamous Epith Cells (0-5) /hpf Ur Transition Epith Cell (None) /hpf Ur Renal Epithelial Cell (None) /hpf Urine Bacteria (None) /hpf Hyaline Casts (0-3) /lpf Urine Mucus (Occasional) /lpf Micro UA Comment Ur Microscopic Review Urine Culture Comments Nasal Screen MRSA (PCR) (Negative) 01/31/18 01/31/18 01/31/18 Range/Units 04:20 04:20 04:22 WBC 15.8 H D (4.0-11.0) th/mm3 RBC 4.30 (4.00-5.30) mil/mm3 Hgb 13.1 (11.6-15.3) gm/dL Hct 38.9 (35.0-46.0) % MCV 90.4 (80.0-100.0) fL MCH 30.5 (27.0-34.0) pg MCHC 33.8 (32.0-36.0) % RDW 13.8 (11.6-17.2) % Plt Count 295 (150-450) th/mm3 MPV 8.8 (7.0-11.0) fL Neut % (Auto) 83.9 H (16.0-70.0) % Lymph % (Auto) 9.0 (9.0-44.0) % [place] % (Auto) 7.0 (0.0-8.0) % Eos % (Auto) 0.0 (0.0-4.0) % Baso % (Auto) 0.1 (0.0-2.0) % Neut # (Auto) 13.3 H (1.8-7.7) th/mm3 Lymph # (Auto) 1.4 (1.0-4.8) th/mm3 [place] # (Auto) 1.1 H (0.0-0.9) th/mm3 Eos # (Auto) 0.0 (0.0-0.4) th/mm3 Baso # (Auto) 0.0 (0.0-0.2) th/mm3 WBC Differential . Differential Comment Auto diff final Puncture Site Patient Temperature O2 Saturation (90-100) % ABG pH (7.380-7.420) ABG pCO2 (38-42) mmHg ABG pO2 (61-120) mmHg ABG HCO3 (22-26) mmol/L ABG O2 Content (12.0-20.0) Vol % ABG Base Excess (-2-2) mmol/L ABG Methemoglobin (0-2) % Gomez Test Hemoglobin (12.0-16.0) G/DL Carboxyhemoglobin (0-4) % O2 Delivery Device Liter Flow L/M Critical Value Sodium 139 (136-145) meq/L Potassium 3.5 (3.5-5.1) meq/L Chloride 104 (98-107) meq/L Carbon Dioxide 25.6 (21.0-32.0) meq/L Anion Gap 9 (5-15) meq/L BUN 23 H (7-18) mg/dL Creatinine 0.79 (0.50-1.00) mg/dL Estimated GFR 76 L (>89) mL/min POC Glucose 315 H (68-110) mg/dl Random Glucose 306 H D (74-106) mg/dL Lactic Acid (0.4-2.0) mmol/L Calcium 9.0 (8.5-10.1) mg/dL Magnesium (1.5-2.5) mg/dL Total Bilirubin 0.2 (0.2-1.0) mg/dL AST 16 (15-37) U/L ALT 26 (10-53) U/L Alkaline Phosphatase 101 (45-117) U/L Troponin I (0.02-0.05) ng/mL Total Protein 7.8 D (6.4-8.2) g/dL Albumin 3.1 L (3.4-5.0) g/dL Urine Color (Yellw/Straw) Urine Clarity (Clear) Urine pH (5.0-8.5) Ur Specific [place] (1.002-1.035) Urine Protein (Neg-Trace) mg/dL Urine Glucose (UA) (Negative) mg/dL Urine Ketones (Negative) mg/dL Urine Occult Blood (Negative) Urine Nitrate (Negative) Urine Bilirubin (Negative) Urine Urobilinogen (Less than 2) mg/dL Ur Leukocyte Esterase (Negative) Urine RBC (0-3) /hpf Urine WBC (0-5) /hpf Ur Squamous Epith Cells (0-5) /hpf Ur Transition Epith Cell (None) /hpf Ur Renal Epithelial Cell (None) /hpf Urine Bacteria (None) /hpf Hyaline Casts (0-3) /lpf Urine Mucus (Occasional) /lpf Micro UA Comment Ur Microscopic Review Urine Culture Comments Nasal Screen MRSA (PCR) (Negative) 01/31/18 01/31/18 01/31/18 Range/Units 05:09 06:37 08:05 WBC (4.0-11.0) th/mm3 RBC (4.00-5.30) mil/mm3 Hgb (11.6-15.3) gm/dL Hct (35.0-46.0) % MCV (80.0-100.0) fL MCH (27.0-34.0) pg MCHC (32.0-36.0) % RDW (11.6-17.2) % Plt Count (150-450) th/mm3 MPV (7.0-11.0) fL Neut % (Auto) (16.0-70.0) % Lymph % (Auto) (9.0-44.0) % [place] % (Auto) (0.0-8.0) % Eos % (Auto) (0.0-4.0) % Baso % (Auto) (0.0-2.0) % Neut # (Auto) (1.8-7.7) th/mm3 Lymph # (Auto) (1.0-4.8) th/mm3 [place] # (Auto) (0.0-0.9) th/mm3 Eos # (Auto) (0.0-0.4) th/mm3 Baso # (Auto) (0.0-0.2) th/mm3 WBC Differential Differential Comment Puncture Site Patient Temperature O2 Saturation (90-100) % ABG pH (7.380-7.420) ABG pCO2 (38-42) mmHg ABG pO2 (61-120) mmHg ABG HCO3 (22-26) mmol/L ABG O2 Content (12.0-20.0) Vol % ABG Base Excess (-2-2) mmol/L ABG Methemoglobin (0-2) % Gomez Test Hemoglobin (12.0-16.0) G/DL Carboxyhemoglobin (0-4) % O2 Delivery Device Liter Flow L/M Critical Value Sodium (136-145) meq/L Potassium (3.5-5.1) meq/L Chloride (98-107) meq/L Carbon Dioxide (21.0-32.0) meq/L Anion Gap (5-15) meq/L BUN (7-18) mg/dL Creatinine (0.50-1.00) mg/dL Estimated GFR (>89) mL/min POC Glucose 278 H 229 H 251 H (68-110) mg/dl Random Glucose (74-106) mg/dL Lactic Acid (0.4-2.0) mmol/L Calcium (8.5-10.1) mg/dL Magnesium (1.5-2.5) mg/dL Total Bilirubin (0.2-1.0) mg/dL AST (15-37) U/L ALT (10-53) U/L Alkaline Phosphatase (45-117) U/L Troponin I (0.02-0.05) ng/mL Total Protein (6.4-8.2) g/dL Albumin (3.4-5.0) g/dL Urine Color (Yellw/Straw) Urine Clarity (Clear) Urine pH (5.0-8.5) Ur Specific [place] (1.002-1.035) Urine Protein (Neg-Trace) mg/dL Urine Glucose (UA) (Negative) mg/dL Urine Ketones (Negative) mg/dL Urine Occult Blood (Negative) Urine Nitrate (Negative) Urine Bilirubin (Negative) Urine Urobilinogen (Less than 2) mg/dL Ur Leukocyte Esterase (Negative) Urine RBC (0-3) /hpf Urine WBC (0-5) /hpf Ur Squamous Epith Cells (0-5) /hpf Ur Transition Epith Cell (None) /hpf Ur Renal Epithelial Cell (None) /hpf Urine Bacteria (None) /hpf Hyaline Casts (0-3) /lpf Urine Mucus (Occasional) /lpf Micro UA Comment Ur Microscopic Review Urine Culture Comments Nasal Screen MRSA (PCR) (Negative) 01/31/18 01/31/18 01/31/18 Range/Units 11:12 11:25 16:16 WBC (4.0-11.0) th/mm3 RBC (4.00-5.30) mil/mm3 Hgb (11.6-15.3) gm/dL Hct (35.0-46.0) % MCV (80.0-100.0) fL MCH (27.0-34.0) pg MCHC (32.0-36.0) % RDW (11.6-17.2) % Plt Count (150-450) th/mm3 MPV (7.0-11.0) fL Neut % (Auto) (16.0-70.0) % Lymph % (Auto) (9.0-44.0) % [place] % (Auto) (0.0-8.0) % Eos % (Auto) (0.0-4.0) % Baso % (Auto) (0.0-2.0) % Neut # (Auto) (1.8-7.7) th/mm3 Lymph # (Auto) (1.0-4.8) th/mm3 [place] # (Auto) (0.0-0.9) th/mm3 Eos # (Auto) (0.0-0.4) th/mm3 Baso # (Auto) (0.0-0.2) th/mm3 WBC Differential Differential Comment Puncture Site Right radial Patient Temperature 98.6 O2 Saturation 96 (90-100) % ABG pH 7.38 (7.380-7.420) ABG pCO2 35 L (38-42) mmHg ABG pO2 110 (61-120) mmHg ABG HCO3 21 L (22-26) mmol/L ABG O2 Content 18.6 (12.0-20.0) Vol % ABG Base Excess -3.7 L (-2-2) mmol/L ABG Methemoglobin 1.7 (0-2) % Gomez Test Present Hemoglobin 13.8 (12.0-16.0) G/DL Carboxyhemoglobin 0.7 (0-4) % O2 Delivery Device Nasal cannula Liter Flow 2.00 L/M Critical Value No Sodium (136-145) meq/L Potassium (3.5-5.1) meq/L Chloride (98-107) meq/L Carbon Dioxide (21.0-32.0) meq/L Anion Gap (5-15) meq/L BUN (7-18) mg/dL Creatinine (0.50-1.00) mg/dL Estimated GFR (>89) mL/min POC Glucose 502 H* 431 H (68-110) mg/dl Random Glucose (74-106) mg/dL Lactic Acid (0.4-2.0) mmol/L Calcium (8.5-10.1) mg/dL Magnesium (1.5-2.5) mg/dL Total Bilirubin (0.2-1.0) mg/dL AST (15-37) U/L ALT (10-53) U/L Alkaline Phosphatase (45-117) U/L Troponin I (0.02-0.05) ng/mL Total Protein (6.4-8.2) g/dL Albumin (3.4-5.0) g/dL Urine Color (Yellw/Straw) Urine Clarity (Clear) Urine pH (5.0-8.5) Ur Specific [place] (1.002-1.035) Urine Protein (Neg-Trace) mg/dL Urine Glucose (UA) (Negative) mg/dL Urine Ketones (Negative) mg/dL Urine Occult Blood (Negative) Urine Nitrate (Negative) Urine Bilirubin (Negative) Urine Urobilinogen (Less than 2) mg/dL Ur Leukocyte Esterase (Negative) Urine RBC (0-3) /hpf Urine WBC (0-5) /hpf Ur Squamous Epith Cells (0-5) /hpf Ur Transition Epith Cell (None) /hpf Ur Renal Epithelial Cell (None) /hpf Urine Bacteria (None) /hpf Hyaline Casts (0-3) /lpf Urine Mucus (Occasional) /lpf Micro UA Comment Ur Microscopic Review Urine Culture Comments Nasal Screen MRSA (PCR) (Negative) 01/31/18 02/01/18 02/01/18 Range/Units 20:56 09:06 12:35 WBC (4.0-11.0) th/mm3 RBC (4.00-5.30) mil/mm3 Hgb (11.6-15.3) gm/dL Hct (35.0-46.0) % MCV (80.0-100.0) fL MCH (27.0-34.0) pg MCHC (32.0-36.0) % RDW (11.6-17.2) % Plt Count (150-450) th/mm3 MPV (7.0-11.0) fL Neut % (Auto) (16.0-70.0) % Lymph % (Auto) (9.0-44.0) % [place] % (Auto) (0.0-8.0) % Eos % (Auto) (0.0-4.0) % Baso % (Auto) (0.0-2.0) % Neut # (Auto) (1.8-7.7) th/mm3 Lymph # (Auto) (1.0-4.8) th/mm3 [place] # (Auto) (0.0-0.9) th/mm3 Eos # (Auto) (0.0-0.4) th/mm3 Baso # (Auto) (0.0-0.2) th/mm3 WBC Differential Differential Comment Puncture Site Patient Temperature O2 Saturation (90-100) % ABG pH (7.380-7.420) ABG pCO2 (38-42) mmHg ABG pO2 (61-120) mmHg ABG HCO3 (22-26) mmol/L ABG O2 Content (12.0-20.0) Vol % ABG Base Excess (-2-2) mmol/L ABG Methemoglobin (0-2) % Gomez Test Hemoglobin (12.0-16.0) G/DL Carboxyhemoglobin (0-4) % O2 Delivery Device Liter Flow L/M Critical Value Sodium (136-145) meq/L Potassium (3.5-5.1) meq/L Chloride (98-107) meq/L Carbon Dioxide (21.0-32.0) meq/L Anion Gap (5-15) meq/L BUN (7-18) mg/dL Creatinine (0.50-1.00) mg/dL Estimated GFR (>89) mL/min POC Glucose 393 H 291 H 402 H (68-110) mg/dl Random Glucose (74-106) mg/dL Lactic Acid (0.4-2.0) mmol/L Calcium (8.5-10.1) mg/dL Magnesium (1.5-2.5) mg/dL Total Bilirubin (0.2-1.0) mg/dL AST (15-37) U/L ALT (10-53) U/L Alkaline Phosphatase (45-117) U/L Troponin I (0.02-0.05) ng/mL Total Protein (6.4-8.2) g/dL Albumin (3.4-5.0) g/dL Urine Color (Yellw/Straw) Urine Clarity (Clear) Urine pH (5.0-8.5) Ur Specific [place] (1.002-1.035) Urine Protein (Neg-Trace) mg/dL Urine Glucose (UA) (Negative) mg/dL Urine Ketones (Negative) mg/dL Urine Occult Blood (Negative) Urine Nitrate (Negative) Urine Bilirubin (Negative) Urine Urobilinogen (Less than 2) mg/dL Ur Leukocyte Esterase (Negative) Urine RBC (0-3) /hpf Urine WBC (0-5) /hpf Ur Squamous Epith Cells (0-5) /hpf Ur Transition Epith Cell (None) /hpf Ur Renal Epithelial Cell (None) /hpf Urine Bacteria (None) /hpf Hyaline Casts (0-3) /lpf Urine Mucus (Occasional) /lpf Micro UA Comment Ur Microscopic Review Urine Culture Comments Nasal Screen MRSA (PCR) (Negative) Imaging Data Attestation: I personally reviewed and interpreted this imaging study as follows : Radiologist's impression: Chest X-Ray 01/29/18 21:23 CONCLUSION: No acute cardiopulmonary process. Chest CT 01/30/18 11:54 CONCLUSION: 1. Patchy alveolar consolidation is noted within the anterior aspect of the right lower lobe as well as the superior aspect of the right middle lobe consistent with probable focal pneumonia. Clinical correlation is recommended. 2. Cardiomegaly. 3. Enlarged fatty liver. ECG Data EKG Prior to Arrival: No Attestation: I personally reviewed and interpreted this ECG as follows: Discharge Plan Discharge Disposition Patient Disposition: 30 Still Patient Discharge Condition Condition: Stable Discharge Details Diagnosis: Asthma exacerbation in COPD Physicians Team ED Provider: Cindy Donald Primary Care Provider: Michael Johnson Attending Provider: Ernesto Lawson Other Providers: Sloan Hein ; [employer] Status ED Status: Left Department Discharge Information Discharge Date/Time: 01/30/18 04:14
[2018-01-29 23:02] LABS: Baso # (Auto) 0.1 th/mm3 (0.0-0.2); Baso % (Auto) 0.5 % (0.0-2.0); Eos % (Auto) 0.1 % (0.0-4.0); Hematocrit 42.6 % (35.0-46.0); Lymph # (Auto) 2.3 th/mm3 (1.0-4.8); Lymph % (Auto) 21.9 % (9.0-44.0); Mean Corpuscular HGB Conc 35.3 % (32.0-36.0); Mean Corpuscular Hemoglobin 31.3 pg (27.0-34.0); Mean Corpuscular Volume 88.6 fL (80.0-100.0); Mean Platelet Volume 8.7 fL (7.0-11.0); Mono # (Auto) 1.5 th/mm3 (0.0-0.9); Mono % (Auto) 14.1 % (0.0-8.0); Neut # (Auto) 6.7 th/mm3 (1.8-7.7); Neut % (Auto) 63.4 % (16.0-70.0); Platelet Count 306 th/mm3 (150-450); Red Blood Count 4.81 mil/mm3 (4.00-5.30); Red Cell Distribution Width 13.1 % (11.6-17.2); White Blood Count 10.5 th/mm3 (4.0-11.0)
[2018-01-29] MEDS ORDERED: Sod Chloride 0.9% Inj 1,000 ML IV.SIG ONE (23:41)
[2018-01-29 23:49] LABS: Alanine Aminotransferase 28 U/L (10-53); Albumin 3.5 g/dL (3.4-5.0); Alkaline Phosphatase 114 U/L (45-117); Anion Gap 14 meq/L (5-15); Aspartate Aminotransferase 17 U/L (15-37); Blood Urea Nitrogen 16 mg/dL (7-18); Carbon Dioxide 25.3 meq/L (21.0-32.0); Chloride 91 meq/L (98-107); Glomerular Filtration Rate 41 mL/min (>89); Glucose,Random 433 mg/dL (74-106); Magnesium 1.6 mg/dL (1.5-2.5); Potassium 3.3 meq/L (3.5-5.1); Sodium 130 meq/L (136-145); Total Protein 8.5 g/dL (6.4-8.2)
[2018-01-29] MEDS ORDERED: Promethazine/Codeine Liq 6.25 MG/10 MG 5 ML UDC PO ONE (23:49)
[2018-01-30 00:36] LABS: Bacteria,Urine Occasional /hpf; Bilirubin,Urine Negative (Negative); Clarity,Urine Cloudy (Clear); Color,Urine Yellow (Yellw/Straw); Glucose,Urine (UA) 500 or Greater mg/dL (Negative); Hyaline Casts,Urine 23 /lpf (0-3); Leukocyte Esterase,Urine Large (Negative); Mucus,Urine Moderate /lpf (Occasional); Nitrite,Urine Negative (Negative); Renal Epithelial Cells,Urine 1 /hpf; Specific Gravity,Urine 1.021 (1.002-1.035); Squamous Epithelial Cell,Urine 6 /hpf (0-5); Transitional Epi Cells,Urine 2 /hpf
[2018-01-30] MEDS ORDERED: Bisacodyl 10 MG Supp RECTAL PRN (00:56)
[2018-01-30] MEDS: MethylPREDNISolone Sod Succinate Inj 40 MG/ML Vial IV.PUSH SCH ×4 (01:30→20:56)
[2018-01-30] MEDS ORDERED: Dextrose 50% in Water 50 ML Vial IV.PUSH PRN ×2 (02:06→12:33)
[2018-01-30] MEDS ORDERED: guaiFENesin/Codeine Syrup 200 MG/20 MG 10 ML UDC PO ONE (08:56)
[2018-01-30] MEDS ORDERED: TRESIBA U SQ SCH (09:00)
[2018-01-30] MEDS ORDERED: LIRAGLUTIDE SQ SCH (09:00)
[2018-01-30] MEDS ORDERED: DOXAZOSIN PO SCH (09:00)
[2018-01-30] MEDS ORDERED: Budesonide-Formoterol 160/4.5 MCG 6 GM Inhaler INH SCH (09:00)
--- NOTE | 2018-01-30 09:05 | P.HPIM ---
History of Present Illness Primary Care Physician: Michael Johnson MD Chief Complaint: Shortness of breath/cough History of Present Illness: The patient is a 52-year-old female with a past medical history of COPD and asthma who is also on infusion therapy for her breathing and on home oxygen who is presenting to the hospital with shortness of breath and coughing. The patient says that she had a port placed about 6 months ago when she receives infusions every 3 days. She says the infusions are helping about 90% of her symptoms. She is unsure what the infusion is and for what condition exactly she is being treated for. She says that she is also on 2 L of home oxygen. She says starting on Thursday her symptoms started to get worse. She has developed a persistent cough accompanied with chest tightness. She denies any mucus production. The cough is keeping her up at night. She has had fevers at home but has not measured them. She says she has been taking a lot of medications at home but they have not been helping. She has been using her nebulizer 7 times a day. She has increased her prednisone to 20 mg twice daily. She says in general her breathing status goes back and forth. She says she has been hospitalized several times this year. She denies any symptoms of a UTI. Discussed with nursing. Inpatient Certification: I certify that the inpatient services were ordered in accordance with Medicare regulations governing the order. This includes certification that hospital inpatient services are reasonable and necessary and in the case of services not specified as inpatient-only under 42 CFR 419.22(n), that they are appropriately provided as inpatient services in accordance to with the 2-midnight benchmark under 43 CFR 412.3(e) Estimated Total Length of Stay (Days): 2 Plans for Post Hospital Care: Home Review of Systems All other systems reviewed negative except as stated in HPI PMFSH - History History Provided By: Patient - Medical History Medical History: Medical History (Last Updated 01/30/18 @ 09:02 by Ernesto Lawson DO) Asthma Hyperlipidemia Ovarian cancer COPD (chronic obstructive pulmonary disease) Diabetes Hypertension - Family History Family History: Family History (Last Updated 01/30/18 @ 09:03 by Erensto Lawson DO) Other Hypertension Lung disease - Social History I have reviewed the patient's Social History: Yes - Tobacco History Second Hand Smoke Exposure: No Smoking Status: Never smoker Tobacco Type: Cigarettes - Alcohol History How Often Do You Have a Drink Containing Alcohol: Never - Substance Use History Substance History: No History of Abuse - Travel History Recent Travel in the [place] Within the Last 8 Weeks: No Recent Travel Out of the Country Within the Last 8 Weeks: No - Immunization History Tetanus Immunization: <5 Years Medications and Allergies Active Medications: Active Medications Al Hydroxide/Mg Hydroxide (Milk Of Magnesia Liq) 30 ml PO Q12H PRN PRN Reason: Mild Constipation Albuterol (Duoneb Neb (Manisha)) 1 ampul NEB Q4HR NEB MANISHA Last Admin: 01/30/18 07:49 Dose: 1 ampul Aspirin (Aspirin Chew) 81 mg PO DAILY MANISHA Bisacodyl (Dulcolax Supp) 10 mg RECTAL DAILY PRN PRN Reason: SEVERE CONSITIPATION Budesonide/Formoterol Fumarate (Symbicort 160/4.5 Mcg Inh) 2 puff INH BID MANISHA Clonidine HCl (Catapres) 0.1 mg PO Q6H PRN PRN Reason: SBP> OR = 180, DBP> OR = 100 Dextrose (D50w Vial) 50 ml IV.PUSH UNSCH PRN PRN Reason: PER HYPOGLYCEMIA PROTOCOL Glucagon (Glucagon Inj) 1 mg OTHER PRN PRN PRN Reason: for Hypoglycemia Protocol Guaifenesin/Codeine Phosphate (Robitussin Ac 200/20 Mg/10 Ml Liq) 10 ml PO Q4H PRN PRN Reason: COUGH Guaifenesin/Codeine Phosphate (Robitussin Ac 200/20 Mg/10 Ml Liq) 10 ml PO ONCE ONE Stop: 01/30/18 08:57 Sodium Chloride (Ns Inj) 1,000 mls @ 0 mls/hr IV.SIG BOLUS [facility] Stop: 01/30/18 21:31 Last Infusion: 01/30/18 00:48 Dose: Infused Levofloxacin/Dextrose (Levaquin 750 Mg Premix Inj) 150 mls @ 100 mls/hr IV.SIG Q48H MANISHA Insulin Aspart (Novolog Insulin Correctional Sugar Inj) 0 unit SQ ACHS MANISHA; Protocol Insulin Aspart (Novolog Inj) 3 units SQ TIDAC [facility] Insulin Detemir (Levemir Inj) 20 unit SQ BID [facility] Lactulose (Lactulose Liq) 30 ml PO DAILY PRN PRN Reason: SEVERE CONSITIPATION Pantoprazole Sodium (Protonix) 20 mg PO DAILY [facility] Ptownmed (Doxazosin ([Cardura Xl] 25 Mg)) 0 each PO DAILY [facility] Sennosides (Senokot) 17.2 mg PO Q12H PRN PRN Reason: Moderate Constipation Sodium Chloride (Ns Flush) 2 ml IV.FLUSH BID [facility] Sodium Chloride (Ns Flush) 2 ml IV.FLUSH PRN PRN PRN Reason: FLUSH AFTER USING IV ACCESS Allergies Allergy/AdvReac Type Severity Reaction Status Date / Time azithromycin Allergy Severe Verified 09/18/17 06:49 banana Allergy Severe Verified 09/18/17 06:49 benazepril Allergy Severe Verified 09/18/17 06:49 captopril Allergy Severe Verified 09/18/17 06:49 egg Allergy Severe Verified 09/18/17 06:49 enalaprilat Allergy Severe Verified 09/18/17 06:49 escitalopram Allergy Severe Verified 09/18/17 06:49 fosinopril Allergy Severe Verified 09/18/17 06:49 iodine Allergy Severe Verified 09/18/17 06:49 lisinopril Allergy Severe Verified 09/18/17 06:49 losartan Allergy Severe Verified 09/18/17 06:49 penicillin G Allergy Severe SOB Verified 09/18/17 06:49 potassium iodide Allergy Severe Verified 09/18/17 06:49 povidone-iodine Allergy Severe Verified 09/18/17 06:49 quinapril Allergy Severe Verified 09/18/17 06:49 sodium iodide Allergy Severe Verified 09/18/17 06:49 sodium iodide Allergy Severe Verified 09/18/17 06:49 *MDRO Multi-Drug Resistant AdvReac Unknown Uncoded 09/18/17 06:49 Organism Home Medications Medication Instructions Recorded Confirmed Type aspirin 81 mg PO DAILY 01/30/18 01/30/18 History budesonide-formoterol [Symbicort] 2 puff INHALATION BID 01/30/18 01/30/18 History clonidine HCl 0.1 mg PO DAILY PRN 01/30/18 01/30/18 History diphenhydramine HCl [Benadryl] 25 mg PO DAILY PRN MDD 25mg 01/30/18 01/30/18 History doxazosin [Cardura XL] 25 mg PO DAILY 01/30/18 01/30/18 History epinephrine [EpiPen] 0.3 mg IM Q15M PRN MDD .9mg 01/30/18 01/30/18 History hydrochlorothiazide 25 mg PO DAILY 01/30/18 01/30/18 History insulin degludec [Tresiba 60 unit SUBCUT DAILY 01/30/18 01/30/18 History FlexTouch U-100] lansoprazole [Prevacid 24Hr] 15 mg PO DAILY 01/30/18 01/30/18 History liraglutide [Victoza 2-Brown] 50 mg SUBCUT DAILY 01/30/18 01/30/18 History prednisone 20 mg PO BID 01/30/18 01/30/18 History Exam Vital signs: Vital Signs 01/29/18 17:58 01/29/18 21:38 01/29/18 21:50 Temperature 98.5 F Pulse Rate 122 H 104 H 114 H Respiratory Rate 20 22 22 Blood Pressure 134/99 H Pulse Oximetry 96 01/29/18 22:05 01/29/18 23:55 01/30/18 01:49 Temperature Pulse Rate 118 H 101 H 89 Respiratory Rate 22 18 18 Blood Pressure 152/78 H Pulse Oximetry 98 01/30/18 02:55 01/30/18 05:46 01/30/18 07:52 Temperature 97.7 F Pulse Rate 92 H 88 82 Respiratory Rate 22 17 16 Blood Pressure 158/81 H Pulse Oximetry 95 96 01/30/18 08:00 Temperature 97.3 F L Pulse Rate 83 Respiratory Rate 18 Blood Pressure 156/79 H Pulse Oximetry 92 L Intake & Output 01/29/18 01/30/18 01/30/18 18:59 06:59 18:59 Intake Total 2650 / 2650 Balance 2650 / 2650 Weight 69.4 kg 69.4 kg Intake: IV 0 / 2150 Levaquin 750 mg Premix Inj 150 150 / 150 ML @ 100 mls/hr IV.SIG ONCE ONE Rx#:[id number] NS Inj 1,000 ML @ Wide Open IV. 1999 SIG BOLUS ONE Rx#:[id number] Oral 500 / 500 Other: # Voids 1 Narrative: General: NAD, frequent coughing. HEENT: NC, AT. Heart: RRR, no M/R/G. Lungs: Diffuse rhonchi and wheezing. Abdomen: Soft, NT, ND. Extremities: No edema. Neuro: No gross deficits. Psych: Mood and affect appropriate. Results - Labs CBC & Chem 7: 01/29/18 22:45 01/29/18 22:48 Labs: Short CBC 01/29/18 Range/Units 22:45 WBC 10.5 (4.0-11.0) th/mm3 Hgb 15.0 (11.6-15.3) gm/dL Hct 42.6 (35.0-46.0) % Plt Count 306 (150-450) th/mm3 BMP 01/29/18 22:48 Sodium 130 L Potassium 3.3 L Chloride 91 L Carbon Dioxide 25.3 BUN 16 Creatinine 1.34 H Calcium 9.0 Cardiac Enzymes 01/29/18 Range/Units 22:48 Troponin I Less than 0.02 L (0.02-0.05) ng/mL Liver Function 01/29/18 Range/Units 22:48 Total Bilirubin 0.3 (0.2-1.0) mg/dL AST 17 (15-37) U/L ALT 28 (10-53) U/L Alkaline Phosphatase 114 (45-117) U/L Albumin 3.5 (3.4-5.0) g/dL Urine 01/30/18 Range/Units 00:02 Urine Color Yellow (Yellw/Straw) Urine Clarity Cloudy H (Clear) Urine pH 6.0 (5.0-8.5) Ur Specific [place] 1.021 (1.002-1.035) Urine Protein 30 H (Neg-Trace) mg/dL Urine Glucose (UA) 500 or greater (Negative) mg/dL - Imaging Impressions Chest X-Ray 01/29/18 21:23 CONCLUSION: No acute cardiopulmonary process. Caprini VTE Risk Assessment Caprini VTE Risk Assessment: Moderate/High Risk (score >= 2) Caprini Risk Assessment Model: Point Value = 1 Point Value = 2 Point Value = 3 Point Value = 5 Age 41-60 Minor surgery BMI > 25 kg/m2 Swollen legs Varicose veins or History of unexplained or recurrent spontaneous Oral contraceptives or hormone replacement Sepsis (< 1 month) Serious lung disease, including pneumonia (< 1 month) Abnormal pulmonary function Acute myocardial infarction Congestive heart failure (< 1 month) History of inflammatory bowel disease Medical patient at bed rest Age 61-74 Arthroscopic surgery Major open surgery (> 45 min) Laparoscopic surgery (> 45 min) Malignancy Confined to bed (> 72 hours) Immobilizing plaster cast Central venous access Age >= 75 History of VTE Family history of VTE Factor V Leiden Prothrombin [id number] Lupus anticoagulant Anticardiolipin antibodies Elevated serum homocysteine Heparin-induced thrombocytopenia Other congenital or acquired thrombophilia Stroke (< 1 month) Elective arthroplasty Hip, pelvis, or leg fracture Acute spinal cord injury (< 1 month) Prophylaxis Regimen: Total Risk Factor Score Risk Level Prophylaxis Regimen 0-1 Low Early ambulation 2 Moderate Order ONE of the following: *Sequential Compression Device (SCD) *Heparin 5000 units SQ BID 3-4 Higher Order ONE of the following medications: *Heparin 5000 units SQ TID *Enoxaparin/Lovenox 40 mg SQ daily (WT < 150 kg, CrCl > 30 mL/min) *Enoxaparin/Lovenox 30 mg SQ daily (WT < 150 kg, CrCl > 10-29 mL/min) *Enoxaparin/Lovenox 30 mg SQ BID (WT < 150 kg, CrCl > 30 mL/min) AND/OR *Sequential Compression Device (SCD) 5 or more Highest Order ONE of the following medications: *Heparin 5000 units SQ TID (Preferred with Epidurals) *Enoxaparin/Lovenox 40 mg SQ daily (WT < 150 kg, CrCl > 30 mL/min) *Enoxaparin/Lovenox 30 mg SQ daily (WT < 150 kg, CrCl > 10-29 mL/min) *Enoxaparin/Lovenox 30 mg SQ BID (WT < 150 kg, CrCl > 30 mL/min) AND *Sequential Compression Device (SCD) Assessment and Plan - Plan Acute on chronic respiratory failure The pt has a history of COPD and asthma. She is on monthly infusions via a port prescribed by her continuous wave operator. -pulmonology consult requested. -hold steroids in setting of hyperglycemia. -continue Symbicort. -IV Levaquin, renally dosed. -incentive spirometry, PT eval. -oxygen and standing nebs. -may need IR evaluation as port unable to be accessed. DM Blood sugar over 500. Exacerbated by pt taking increased amounts of prednisone. -hold steroids. -Levemir 20 units BID, aspart 3 units with meals, ISS. Adjust regimen as needed. HTN On HCTZ as an outpt. -hold HCTZ as hyponatremic and with hypokalemia. -clonidine as needed. -add amlodipine if needed. Hypokalemia Likely s/t HCTZ. -d/c HCTZ. -follow BMP and replete as needed. PPx: Heparin Code Status: Full H&P: Quality - VTE Deep Vein Thrombosis/Pulmonary Embolism Present on Admission: No
[2018-01-30] MEDS: Insulin NovoLOG Aspart Correctional Sugar Inj SQ SCH ×2 (10:06→13:33)
[2018-01-30] MEDS: Insulin Detemir Inj 1,000 UNIT/10 ML Vial SQ SCH (10:07)
[2018-01-30] MEDS: Heparin - SQ 10,000 UNITS/ML Vial SQ SCH ×2 (10:08→13:34)
[2018-01-30] MEDS: Pantoprazole Sodium 20 MG DR Tablet PO SCH (10:08)
[2018-01-30 10:46] LABS: Hematocrit 40.3 % (35.0-46.0); Hemoglobin 13.5 gm/dL (11.6-15.3); Mean Corpuscular HGB Conc 33.5 % (32.0-36.0); Mean Corpuscular Hemoglobin 31.1 pg (27.0-34.0); Mean Corpuscular Volume 92.7 fL (80.0-100.0); Mean Platelet Volume 8.8 fL (7.0-11.0); Platelet Count 265 th/mm3 (150-450); Red Blood Count 4.35 mil/mm3 (4.00-5.30); Red Cell Distribution Width 13.3 % (11.6-17.2); White Blood Count 8.7 th/mm3 (4.0-11.0)
[2018-01-30 11:18] LABS: Calcium 8.3 mg/dL (8.5-10.1); Carbon Dioxide 23.1 meq/L (21.0-32.0)
[2018-01-30] MEDS ORDERED: Sod Chloride 0.9% Inj 1,000 ML IV.CONT SCH (11:45)
[2018-01-30 13:08] LABS: ABG Base Excess -0.6 mmol/L (-2-2); ABG PCO2 36 mmHg (38-42); ABG PO2 90 mmHg (61-120)
[2018-01-30] MEDS: Budesonide-Formoterol 160/4.5 MCG 6 GM Inhaler INH SCH ×2 (13:31→20:56)
[2018-01-30] MEDS ORDERED: Insulin Regular (For Infusion) 100 UNIT in Sodium Chlor 0.9% Inj 99 ML IV.CONT PRN (14:00)
--- NOTE | 2018-01-30 14:17 | MB ---
cc: Catracho Harry MD DATE: 01/30/2018 HISTORY OF PRESENT ILLNESS: The patient is a 52-year-old female with a past medical history of COPD, bronchial asthma, being followed by Dr. 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 She also reports having chills but denies any fever or constitutional symptoms. The patient states that her symptoms started on Thursday, and she increased her prednisone to 20 mg twice a day, and despite increasing her steroids and increased use of her bronchodilators, it did not improve her symptoms. She takes nebulizers DuoNeb at home along with Symbicort and prednisone. She is also on anti-IgE injections for refractory asthma. On arrival to the ER, she was tachycardic and is currently on 2 L oxygen with saturation of 96%. Chest x-ray in the ED showed no evidence of any acute cardiopulmonary process. The patient was admitted to the hospitalist service and was started on bronchodilators, steroids, and antibiotics. However, her Solu-Medrol was discontinued as she was hyperglycemic with a blood sugar greater than 500. She denies any recent hospitalization for pneumonia. However, she states that her granddaughter at home is coughing and has flu-like symptoms. The patient was screened for influenza which was negative. She denies any recent intubation for her COPD or asthma, and her last intubation was approximately 20 years ago in [place]. She denies any orthopnea, PND, or edema of lower extremities. In addition, she denies any GI symptoms. She uses 2 L oxygen at home. The patient quit smoking 18 years ago. PAST MEDICAL HISTORY: Significant for COPD, bronchial asthma, hyperlipidemia, diabetes mellitus, hypertension. FAMILY HISTORY: Hypertension runs in the family. ALLERGIES: MULTIPLE WHICH INCLUDE BENAZEPRIL, CAPTOPRIL, LISINOPRIL, PENICILLIN, SODIUM IODIDE. SOCIAL HISTORY: Remote history of tobacco use. MEDICATIONS AT HOME: Symbicort, aspirin, prednisone, hydrochlorothiazide, Cardura, Prevacid. REVIEW OF SYSTEMS: As per HPI. Rest of review of systems is unremarkable. PHYSICAL EXAMINATION: GENERAL: The patient is a 52-year-old female lying in bed in mild respiratory distress. VITAL SIGNS: Temperature 97.3, pulse of 83, respiratory rate of 18, blood pressure 156/79, saturation 92%-96% on 2 L. HEENT: Atraumatic, normocephalic. Pupils are equal, round, reactive to light and accommodation. Extraocular muscles intact. NECK: Supple. No JVD, adenopathy, or thyromegaly. Trachea in the midline. CARDIOVASCULAR: Regular rate and rhythm. Normal S1, S2. No murmurs, rubs, or gallops noted. PULMONARY: Bilateral equal air entry with scattered wheezing, prolonged expiratory phase. A few coarse breath sounds. ABDOMEN: Soft, nontender, nondistended. Positive bowel sounds. EXTREMITIES: No cyanosis, clubbing, or edema. NEUROLOGIC: No focal sensory deficit. LABORATORY DATA: Sodium 132, potassium 4, chloride 97, CO2 of 23, BUN 16, creatinine 1.17, glucose 718. WBC 8.7, hemoglobin 13.5, hematocrit 40, platelet count of 265. RADIOGRAPHIC STUDIES: Chest x-ray showed no acute cardiopulmonary disease. IMPRESSION: 1. Acute hypoxemic respiratory insufficiency. 2. Bronchospasm. 3. Bronchial asthma exacerbation. 4. Chronic obstructive pulmonary disease. 5. Hypertension. 6. Hyperglycemia. 7. Hyponatremia. RECOMMENDATIONS: 1. Continue with oxygen and maintain saturations above 92%. 2. Bronchodilators in the form of DuoNeb every 4 hours plus every 2 hours p.r.n. for shortness of breath. BiPAP p.r.n. for respiratory distress. 3. The patient was on steroids. However, it was discontinued due to hyperglycemia. We will place on low-dose SOLU-Medrol 40 mg q.12 hours. 4. We will proceed with CT scan of the chest without contrast for further evaluation of pulmonary parenchyma. 5. We will obtain a baseline IgE level. 6. Continue with antitussive medication for cough. 7. Continue with empiric antibiotics. She is currently on Levaquin. Monitor for signs of infection, which include fever and WBC. We will obtain a sputum culture with Gram stain. 8. Check ABG. 9. Glycemic control per primary team. 10. Gastrointestinal and deep venous thrombosis prophylaxis. She is on heparin 5000 units subcutaneous every 8 hours. 11. Further recommendations will be based on hospital course. Thank you for the consultation and allowing us to participate in this patient's care. MD Kimberley Archuleta , 12:11 PM , 12:25 PM
--- NOTE | 2018-01-30 15:03 | CT ---
EXAM DATE: 01/30/2018 2:52 PM EDT AGE/SEX: 52 years / Female INDICATIONS: Short of breath, wheezing. CLINICAL DATA: This is the patient's initial encounter. Patient reports that signs and symptoms have been present for 1 day and indicates a pain score of 0/10. MEDICAL/SURGICAL HISTORY: Chronic obstructive pulmonary disease. Diabetes. Asthma. HTN, ovarian cancer None. RADIATION DOSE: 17.88 CTDI (mGy) COMPARISON: No prior exams available for comparison. TECHNIQUE: Multiple contiguous axial images were obtained through the chest without contrast. Image s were obtained in suspended respiration using multiple row detector helical technique. Using automa pili exposure control and adjustment of the mA and/or kV according to patient size, radiation dose was kept as low as reasonably achievable to obtain optimal diagnostic quality images. DICOM format imag e data is available electronically for review and comparison. FINDINGS: Lungs: Patchy alveolar consolidation is noted within the anterior aspect of the right lower lobe as well as the superior aspect of the right middle lobe consistent with probable focal pneumonia. Clinic al correlation is recommended. No pulmonary nodule or mass is noted. Mediastinum: There is good visualization of the great vessels of the middle mediastinum. No evidenc e of mediastinal or hilar adenopathy/mass. The heart is enlarged. Right internal jugular [id number] t has its tip in the right atrium. Pleurae: No evidence of focal thickening or pleural effusion. Axillae: Unremarkable. Bony Structures: Unremarkable. Miscellaneous: The examination was extended to include the upper abdomen, and both adrenal glands ar e normal in size and configuration. Liver is enlarged and demonstrates diffuse fatty infiltration. CONCLUSION: 1. Patchy alveolar consolidation is noted within the anterior aspect of the right lower lobe as well as the superior aspect of the right middle lobe consistent with probable focal pneumonia. Clinical c orrelation is recommended. 2. Cardiomegaly. 3. Enlarged fatty liver. Electronically signed by: Wilton Melgoza MD 01/30/2018 3:01 PM EDT
[2018-01-30] MEDS: guaiFENesin/Codeine Syrup 200 MG/20 MG 10 ML UDC PO PRN ×2 (16:28→20:55)
[2018-01-30] MEDS ORDERED: Acetaminophen 325 MG Tablet PO PRN (23:27)
--- NOTE | 2018-01-31 00:24 | ECG ---
Date Performed: 01/29/2018 Time Performed: 22:11:54 PTAGE: 52 years EKG: SINUS TACHYCARDIA MODERATE ST DEPRESSION ABNORMAL ECG PREVIOUS TRACING : 04/23/2017 12.50 DOCTOR: Herbert Gupta Interpretating Date/Time 01/31/2018 00:22:57
[2018-01-31 05:40] LABS: Baso % (Auto) 0.1 % (0.0-2.0); Hematocrit 38.9 % (35.0-46.0); Hemoglobin 13.1 gm/dL (11.6-15.3); Lymph # (Auto) 1.4 th/mm3 (1.0-4.8); Mean Corpuscular HGB Conc 33.8 % (32.0-36.0); Mean Corpuscular Hemoglobin 30.5 pg (27.0-34.0); Mean Corpuscular Volume 90.4 fL (80.0-100.0); Mean Platelet Volume 8.8 fL (7.0-11.0); Mono # (Auto) 1.1 th/mm3 (0.0-0.9); Neut # (Auto) 13.3 th/mm3 (1.8-7.7); Neut % (Auto) 83.9 % (16.0-70.0); Platelet Count 295 th/mm3 (150-450); Red Cell Distribution Width 13.8 % (11.6-17.2); White Blood Count 15.8 th/mm3 (4.0-11.0)
[2018-01-31 06:17] LABS: Alanine Aminotransferase 26 U/L (10-53); Albumin 3.1 g/dL (3.4-5.0); Alkaline Phosphatase 101 U/L (45-117); Anion Gap 9 meq/L (5-15); Aspartate Aminotransferase 16 U/L (15-37); Blood Urea Nitrogen 23 mg/dL (7-18); Carbon Dioxide 25.6 meq/L (21.0-32.0); Chloride 104 meq/L (98-107); Glomerular Filtration Rate 76 mL/min (>89); Glucose,Random 306 mg/dL (74-106); Potassium 3.5 meq/L (3.5-5.1); Sodium 139 meq/L (136-145); Total Protein 7.8 g/dL (6.4-8.2)
[2018-01-31] MEDS: Heparin - SQ 10,000 UNITS/ML Vial SQ SCH ×4 (07:23→22:36)
[2018-01-31] MEDS: Pantoprazole Sodium 20 MG DR Tablet PO SCH (08:47)
[2018-01-31] MEDS: MethylPREDNISolone Sod Succinate Inj 40 MG/ML Vial IV.PUSH SCH ×2 (08:47→21:16)
[2018-01-31] MEDS: guaiFENesin/Codeine Syrup 200 MG/20 MG 10 ML UDC PO PRN ×3 (08:48→21:13)
[2018-01-31] MEDS: Budesonide-Formoterol 160/4.5 MCG 6 GM Inhaler INH SCH ×2 (08:48→21:21)
[2018-01-31] MEDS: Insulin Detemir Inj 1,000 UNIT/10 ML Vial SQ SCH ×2 (09:11→21:14)
--- NOTE | 2018-01-31 09:16 | P.PNPL ---
Subjective Interval history: Patient is feeling somewhat better on 2L oxygen with good sats, placed on insulin drip for glycemic control (currently on 3u/hr). CT chest yesterday patchy alveolar consolidation is noted within the anterior aspect of the right lower lobe as well as the superior aspect of the right middle lobe consistent with probable focal pneumonia. Physical Exam Vital signs: Vital Signs 01/30/18 12:00 01/30/18 13:04 01/30/18 15:00 Temperature 97.7 F Pulse Rate 86 80 100 H Respiratory Rate 18 18 Blood Pressure 161/86 H Pulse Oximetry 94 L 01/30/18 16:00 01/30/18 20:00 01/30/18 21:07 Temperature 96.5 F L 98.3 F Pulse Rate 93 H 54 L 71 Respiratory Rate 27 H 22 Blood Pressure 170/85 H 120/59 L Pulse Oximetry 98 94 L 98 01/31/18 00:00 01/31/18 00:07 01/31/18 03:57 Temperature 98 F Pulse Rate 55 L 81 63 Respiratory Rate 18 22 16 Blood Pressure 141/68 H Pulse Oximetry 94 L 01/31/18 04:00 01/31/18 07:00 01/31/18 08:30 Temperature 98.4 F Pulse Rate 71 66 Respiratory Rate 20 20 Blood Pressure 129/82 Pulse Oximetry 98 96 98 Intake & Output 01/30/18 01/31/18 01/31/18 18:59 06:59 18:59 Intake Total 232 / 232 Output Total 300 / 300 250 / 250 Balance -300 / -300 -18 / -18 Weight 70 kg Intake: Oral 200 / 200 Other 32 / 32 Output: Urine 300 / 300 250 / 250 Other: Date of Last Bowel Movement 01/30/18 01/30/18 - Constitutional mild distress, obese - Routine HEENT Exam Head: Present: normocephalic, atraumatic Eye: Present: EOMI, PERRL, normal accommodation, conjunctivae pink ENT: Present: mucous membranes moist - Routine Neck Exam Present: supple, full ROM, trachea midline - Routine Respiratory Exam Present: wheezes - Routine Cardiovascular Exam Present: RRR, S1, S2 - Routine Abdominal Exam Present: soft, normoactive bowel sounds - Routine Extremities Exam Present: full ROM, pulses intact - Routine Skin Exam Present: intact, dry - Routine Neurological Exam Present: alert, oriented X3, CN II-XII intact Assessment and Plan - Plan 1. Acute hypoxemic respiratory insufficiency. 2. Bronchospasm. 3. Bronchial asthma exacerbation. 4. COPD 5 Right sided pneumonia 6. Hypertension. 7. Hyperglycemia. 8. Hyponatremia. Plan Continue with oxygen and maintain sats>92%. Bronchodilators ( DuoNeb, Symbicort) BiPAP p.r.n. for respiratory distress. Continue SOLU-Medrol 40 mg q.[address] chest yesterday patchy alveolar consolidation is noted within the anterior aspect of the right lower lobe as well as the superior aspect of the right middle lobe consistent with probable focal pneumonia. Check IgE level. Continue with antitussive Meds for cough. Continue Levaquin and monitor for signs of infection(fever and WBC) Check sputum cx, strep pneumonia and Legionella urinary Ag. Nasal washing for influenza is negative on 01/29. Glycemic control- on insulin drip. GI/DVT prophylaxis. On Heparin SQ Continue treatment plan.
[2018-01-31] MEDS: Insulin NovoLOG Aspart Correctional Sugar Inj SQ SCH ×3 (11:18→21:13)
[2018-01-31 11:34] LABS: ABG Base Excess -3.7 mmol/L (-2-2); ABG PCO2 35 mmHg (38-42); ABG PO2 110 mmHG (61-120)
--- NOTE | 2018-01-31 15:37 | P.PN ---
Subjective Interval history: Follow up for pneumonia, COPD exacerbation. Patient started coughing a lot. However, later on her condition improved. No fever, chills. Pulmonary saw patient. Physical Exam Vital signs: Vital Signs 01/30/18 16:00 01/30/18 16:42 01/30/18 17:00 Temperature 96.5 F L Pulse Rate 93 H 83 84 Respiratory Rate 27 H 15 25 H Blood Pressure 170/85 H Pulse Oximetry 98 97 95 01/30/18 17:02 01/30/18 18:00 01/30/18 18:01 Temperature Pulse Rate 84 81 82 Respiratory Rate 16 48 H 38 H Blood Pressure 119/69 123/74 Pulse Oximetry 97 96 97 01/30/18 19:00 01/30/18 20:00 01/30/18 21:00 Temperature 98.3 F Pulse Rate 71 70 70 Respiratory Rate 13 15 14 Blood Pressure 122/67 132/73 127/74 Pulse Oximetry 98 97 97 01/30/18 21:07 01/30/18 22:00 01/30/18 23:00 Temperature Pulse Rate 71 76 68 Respiratory Rate 22 24 20 Blood Pressure 135/77 125/66 Pulse Oximetry 98 97 98 01/31/18 00:00 01/31/18 00:07 01/31/18 01:00 Temperature 98 F Pulse Rate 79 81 82 Respiratory Rate 24 22 14 Blood Pressure 142/69 H 128/70 Pulse Oximetry 100 98 01/31/18 02:00 01/31/18 03:00 01/31/18 03:01 Temperature Pulse Rate 81 69 71 Respiratory Rate 22 35 H 38 H Blood Pressure 133/78 111/60 Pulse Oximetry 99 97 99 01/31/18 03:57 01/31/18 04:00 01/31/18 05:00 Temperature 98.4 F Pulse Rate 63 71 68 Respiratory Rate 16 23 38 H Blood Pressure 129/82 134/70 Pulse Oximetry 98 98 01/31/18 06:00 01/31/18 07:00 01/31/18 08:00 Temperature 97.6 F Pulse Rate 63 57 L 63 Respiratory Rate 36 H 25 H 14 Blood Pressure 121/90 128/70 153/88 H Pulse Oximetry 97 98 95 01/31/18 08:30 01/31/18 09:00 01/31/18 10:00 Temperature Pulse Rate 66 77 83 Respiratory Rate 20 24 13 Blood Pressure 159/95 H 132/70 Pulse Oximetry 98 99 98 01/31/18 10:13 01/31/18 10:39 01/31/18 11:00 Temperature Pulse Rate 95 H 98 H 92 H Respiratory Rate 25 H 16 26 H Blood Pressure 121/94 H 116/72 Pulse Oximetry 95 96 01/31/18 12:00 01/31/18 12:01 01/31/18 12:34 Temperature 98.2 F Pulse Rate 97 H 95 H 103 H Respiratory Rate 29 H 24 29 H Blood Pressure 182/84 H 138/100 H Pulse Oximetry 98 99 99 01/31/18 12:42 01/31/18 12:48 01/31/18 13:00 Temperature Pulse Rate 104 H 101 H 96 H Respiratory Rate 23 27 H 26 H Blood Pressure 210/109 H 197/104 H 184/89 H Pulse Oximetry 97 96 98 Intake & Output 01/30/18 01/31/18 01/31/18 18:59 06:59 18:59 Intake Total 232 / 232 Output Total 300 / 300 250 / 250 Balance -300 / -300 - Weight 70 kg Intake: Oral 200 / 200 Other 32 / 32 Output: Urine 300 / 300 250 / 250 Other: Date of Last Bowel Movement 01/30/18 01/30/18 01/30/18 Narrative: GENERAL: Alert, mild distress due to cough. SKIN: Warm and dry. HEAD: Normocephalic. EYES: No scleral icterus. No injection or drainage. NECK: Supple, trachea midline. No JVD or lymphadenopathy. CARDIOVASCULAR: Regular rate and rhythm without murmurs, gallops, or rubs. RESPIRATORY: Moderate air entry, scattered wheezing noted, bibasilar diminished breath sound. GASTROINTESTINAL: Abdomen soft, non-tender, nondistended. MUSCULOSKELETAL: No cyanosis, or edema. BACK: Nontender without obvious deformity. No CVA tenderness. Results - Labs CBC & Chem 7: 01/31/18 04:20 01/31/18 04:20 Laboratory Results - last 24 hr 01/30/18 01/30/18 01/30/18 15:02 15:30 16:04 WBC RBC Hgb Hct MCV MCH MCHC RDW Plt Count MPV Neut % (Auto) Lymph % (Auto) [place] % (Auto) Eos % (Auto) Baso % (Auto) Neut # (Auto) Lymph # (Auto) [place] # (Auto) Eos # (Auto) Baso # (Auto) WBC Differential Differential Comment Puncture Site Patient Temperature O2 Saturation ABG pH ABG pCO2 ABG pO2 ABG HCO3 ABG O2 Content ABG Base Excess ABG Methemoglobin Gomez Test Hemoglobin Carboxyhemoglobin O2 Delivery Device Liter Flow Critical Value Sodium Potassium Chloride Carbon Dioxide Anion Gap BUN Creatinine Estimated GFR POC Glucose 436 H 399 H Random Glucose Calcium Total Bilirubin AST ALT Alkaline Phosphatase Total Protein Albumin Nasal Screen MRSA (PCR) Not detected 01/30/18 01/30/18 01/30/18 17:04 18:00 18:55 WBC RBC Hgb Hct MCV MCH MCHC RDW Plt Count MPV Neut % (Auto) Lymph % (Auto) [place] % (Auto) Eos % (Auto) Baso % (Auto) Neut # (Auto) Lymph # (Auto) [place] # (Auto) Eos # (Auto) Baso # (Auto) WBC Differential Differential Comment Puncture Site Patient Temperature O2 Saturation ABG pH ABG pCO2 ABG pO2 ABG HCO3 ABG O2 Content ABG Base Excess ABG Methemoglobin Gomez Test Hemoglobin Carboxyhemoglobin O2 Delivery Device Liter Flow Critical Value Sodium Potassium Chloride Carbon Dioxide Anion Gap BUN Creatinine Estimated GFR POC Glucose 350 H 298 H 285 H Random Glucose Calcium Total Bilirubin AST ALT Alkaline Phosphatase Total Protein Albumin Nasal Screen MRSA (PCR) 01/30/18 01/30/18 01/30/18 20:18 21:15 22:34 WBC RBC Hgb Hct MCV MCH MCHC RDW Plt Count MPV Neut % (Auto) Lymph % (Auto) [place] % (Auto) Eos % (Auto) Baso % (Auto) Neut # (Auto) Lymph # (Auto) [place] # (Auto) Eos # (Auto) Baso # (Auto) WBC Differential Differential Comment Puncture Site Patient Temperature O2 Saturation ABG pH ABG pCO2 ABG pO2 ABG HCO3 ABG O2 Content ABG Base Excess ABG Methemoglobin Gomez Test Hemoglobin Carboxyhemoglobin O2 Delivery Device Liter Flow Critical Value Sodium Potassium Chloride Carbon Dioxide Anion Gap BUN Creatinine Estimated GFR POC Glucose 261 H 218 H 228 H Random Glucose Calcium Total Bilirubin AST ALT Alkaline Phosphatase Total Protein Albumin Nasal Screen MRSA (PCR) 01/31/18 01/31/18 01/31/18 00:03 01:26 01:55 WBC RBC Hgb Hct MCV MCH MCHC RDW Plt Count MPV Neut % (Auto) Lymph % (Auto) [place] % (Auto) Eos % (Auto) Baso % (Auto) Neut # (Auto) Lymph # (Auto) [place] # (Auto) Eos # (Auto) Baso # (Auto) WBC Differential Differential Comment Puncture Site Patient Temperature O2 Saturation ABG pH ABG pCO2 ABG pO2 ABG HCO3 ABG O2 Content ABG Base Excess ABG Methemoglobin Gomez Test Hemoglobin Carboxyhemoglobin O2 Delivery Device Liter Flow Critical Value Sodium Potassium Chloride Carbon Dioxide Anion Gap BUN Creatinine Estimated GFR POC Glucose 308 H 364 H 371 H Random Glucose Calcium Total Bilirubin AST ALT Alkaline Phosphatase Total Protein Albumin Nasal Screen MRSA (PCR) 01/31/18 01/31/18 01/31/18 04:20 04:20 04:22 WBC 15.8 H D RBC 4.30 Hgb 13.1 Hct 38.9 MCV 90.4 MCH 30.5 MCHC 33.8 RDW 13.8 Plt Count 295 MPV 8.8 Neut % (Auto) 83.9 H Lymph % (Auto) 9.0 [place] % (Auto) 7.0 Eos % (Auto) 0.0 Baso % (Auto) 0.1 Neut # (Auto) 13.3 H Lymph # (Auto) 1.4 [place] # (Auto) 1.1 H Eos # (Auto) 0.0 Baso # (Auto) 0.0 WBC Differential . Differential Comment Auto diff final Puncture Site Patient Temperature O2 Saturation ABG pH ABG pCO2 ABG pO2 ABG HCO3 ABG O2 Content ABG Base Excess ABG Methemoglobin Gomez Test Hemoglobin Carboxyhemoglobin O2 Delivery Device Liter Flow Critical Value Sodium 139 Potassium 3.5 Chloride 104 Carbon Dioxide 25.6 Anion Gap 9 BUN 23 H Creatinine 0.79 Estimated GFR 76 L POC Glucose 315 H Random Glucose 306 H D Calcium 9.0 Total Bilirubin 0.2 AST 16 ALT 26 Alkaline Phosphatase 101 Total Protein 7.8 D Albumin 3.1 L Nasal Screen MRSA (PCR) 01/31/18 01/31/18 01/31/18 05:09 06:37 08:05 WBC RBC Hgb Hct MCV MCH MCHC RDW Plt Count MPV Neut % (Auto) Lymph % (Auto) [place] % (Auto) Eos % (Auto) Baso % (Auto) Neut # (Auto) Lymph # (Auto) [place] # (Auto) Eos # (Auto) Baso # (Auto) WBC Differential Differential Comment Puncture Site Patient Temperature O2 Saturation ABG pH ABG pCO2 ABG pO2 ABG HCO3 ABG O2 Content ABG Base Excess ABG Methemoglobin Gomez Test Hemoglobin Carboxyhemoglobin O2 Delivery Device Liter Flow Critical Value Sodium Potassium Chloride Carbon Dioxide Anion Gap BUN Creatinine Estimated GFR POC Glucose 278 H 229 H 251 H Random Glucose Calcium Total Bilirubin AST ALT Alkaline Phosphatase Total Protein Albumin Nasal Screen MRSA (PCR) 01/31/18 01/31/18 11:12 11:25 WBC RBC Hgb Hct MCV MCH MCHC RDW Plt Count MPV Neut % (Auto) Lymph % (Auto) [place] % (Auto) Eos % (Auto) Baso % (Auto) Neut # (Auto) Lymph # (Auto) [place] # (Auto) Eos # (Auto) Baso # (Auto) WBC Differential Differential Comment Puncture Site Right radial Patient Temperature 98.6 O2 Saturation 96 ABG pH 7.38 ABG pCO2 35 L ABG pO2 110 ABG HCO3 21 L ABG O2 Content 18.6 ABG Base Excess -3.7 L ABG Methemoglobin 1.7 Gomez Test Present Hemoglobin 13.8 Carboxyhemoglobin 0.7 O2 Delivery Device Nasal cannula Liter Flow 2.00 Critical Value No Sodium Potassium Chloride Carbon Dioxide Anion Gap BUN Creatinine Estimated GFR POC Glucose 502 H* Random Glucose Calcium Total Bilirubin AST ALT Alkaline Phosphatase Total Protein Albumin Nasal Screen MRSA (PCR) Microbiology 01/30/18 00:02 Clean Catch Urine Urine Culture - Final >100,000 cfu/mL mixed gram positive [place] (probable contaminantes) 01/31/18 10:00 Urine - Clean Catch Urine Streptococcus pneumoniae Antigen ( M - Final Presumptive negative for streptococcus pneumoniae antigen, suggesting no current or recent infection. Infection due to Streptococcus pneumoniae cannot be ruled out since the antigen present in the sample may be below the detection limit of the test. 01/31/18 10:00 Urine - Clean Catch Urine Legionella Antigen - Final Presumptive negative for Legionella pneumophila serogroup 1 antigen in urine, suggesting no recent or recurrent infection. Infection due to Legionella cannot be ruled out since other serogroups and species may cause disease, antigen may not be present in urine in early infection, and the level of antigen present in the urine may be below the detection limit of the test. 01/29/18 22:45 Blood - Peripheral Aerobic Blood Culture - Preliminary No growth in 2 days 01/29/18 22:45 Blood - Peripheral Anaerobic Blood Culture - Preliminary No growth in 2 days 01/29/18 22:50 Blood - Peripheral Aerobic Blood Culture - Preliminary No growth in 2 days 01/29/18 22:50 Blood - Peripheral Anaerobic Blood Culture - Preliminary No growth in 2 days - Imaging Chest X-Ray 01/29/18 21:23 CONCLUSION: No acute cardiopulmonary process. Chest CT 01/30/18 11:54 CONCLUSION: 1. Patchy alveolar consolidation is noted within the anterior aspect of the right lower lobe as well as the superior aspect of the right middle lobe consistent with probable focal pneumonia. Clinical correlation is recommended. 2. Cardiomegaly. 3. Enlarged fatty liver. Assessment and Plan - Plan The patient is a 52-year-old female with a past medical history of COPD and asthma who is also on infusion therapy for her breathing and on home oxygen who is presented to the hospital on 01/30/2018 with shortness of breath and coughing. Work up indicated right sided pneumonia. Patient was initially admitted to ICU and pulmonary was consulted. Right sided pneumonia Acute COPD Exacerbation -Appreciate Pulm input. -Continue Levaquin 750mg IV Q24hrs, DuoNeb, Symbicort, Solu-medrol 40mg Q12hrs. -Will try to switch to PO abx and steroid. Diabetes mellitus - BG is high. Currently on Levemir 20 units BID, sliding scale insulin and pre-meal insulin. - May need higher dose of pre-meal insulin. Full code. Heparin SQ.
[2018-02-01] MEDS: guaiFENesin/Codeine Syrup 200 MG/20 MG 10 ML UDC PO PRN ×2 (01:13→06:08)
[2018-02-01] MEDS: Heparin - SQ 10,000 UNITS/ML Vial SQ SCH ×4 (06:00→21:57)
[2018-02-01] MEDS: Pantoprazole Sodium 20 MG DR Tablet PO SCH (10:28)
[2018-02-01] MEDS: Insulin Detemir Inj 1,000 UNIT/10 ML Vial SQ SCH ×2 (10:28→20:30)
[2018-02-01] MEDS: Insulin NovoLOG Aspart Correctional Sugar Inj SQ SCH ×4 (10:28→20:30)
[2018-02-01] MEDS: Budesonide-Formoterol 160/4.5 MCG 6 GM Inhaler INH SCH ×2 (10:29→20:36)
[2018-02-01] MEDS: MethylPREDNISolone Sod Succinate Inj 40 MG/ML Vial IV.PUSH SCH (10:29)
[2018-02-01] MEDS ORDERED: Insulin Detemir Inj 1,000 UNIT/10 ML Vial SQ ONE (12:11)
[2018-02-01] MEDS ORDERED: Promethazine/Codeine Liq 6.25 MG/10 MG 5 ML UDC PO PRN ×2 (12:41→12:42)
--- NOTE | 2018-02-01 12:50 | P.PNIM ---
Subjective Interval history: The patient said that she was still coughing a lot. She said sometimes when she eats she feels more short of breath. She believes the steroids are helping. Family at the bedside. Discussed with nursing. Physical Exam Vital signs: Vital Signs 01/31/18 12:48 01/31/18 13:00 01/31/18 14:00 Temperature Pulse Rate 101 H 96 H 80 Respiratory Rate 27 H 26 H 12 Blood Pressure 197/104 H 184/89 H 149/74 H Pulse Oximetry 96 98 98 01/31/18 15:00 01/31/18 16:00 01/31/18 18:47 Temperature 98.0 F Pulse Rate 71 81 Respiratory Rate 16 12 Blood Pressure 140/68 129/71 Pulse Oximetry 95 97 93 L 01/31/18 20:00 01/31/18 20:07 02/01/18 00:00 Temperature 97.7 F 98.1 F Pulse Rate 68 77 82 Respiratory Rate 18 16 18 Blood Pressure 161/85 H 164/91 H Pulse Oximetry 97 99 97 02/01/18 00:02 02/01/18 03:30 02/01/18 07:42 Temperature Pulse Rate 70 72 65 Respiratory Rate 16 16 16 Blood Pressure Pulse Oximetry 97 02/01/18 08:00 02/01/18 12:22 Temperature 97.8 F Pulse Rate 67 92 H Respiratory Rate 18 16 Blood Pressure 181/86 H Pulse Oximetry 96 Intake & Output 01/31/18 02/01/18 02/01/18 18:59 06:59 18:59 Intake Total 500 / 500 440 / 440 300 / 300 Output Total 700 / 700 Balance -200 / -200 440 / 440 300 / 300 Weight 69 kg Intake: IV 300 / 300 Levaquin 750 mg Premix Inj 150 300 / 300 ML @ 100 mls/hr IV.SIG Q24H [facility] Rx#:[id number] Oral 500 / 500 440 / 440 Output: Urine 700 / 700 Other: # Voids 1 Date of Last Bowel Movement 01/30/18 01/30/18 Narrative: GENERAL: Coughing, no distress. SKIN: Warm and dry. HEENT: Normocephalic. No scleral icterus. No injection or drainage. NECK: Supple, trachea midline. No JVD or lymphadenopathy. CARDIOVASCULAR: Regular rate and rhythm without murmurs, gallops, or rubs. RESPIRATORY: Moderate air entry, scattered wheezing noted, bibasilar diminished breath sounds. GASTROINTESTINAL: Abdomen soft, non-tender, nondistended. MUSCULOSKELETAL: No cyanosis, or edema. BACK: Nontender without obvious deformity. No CVA tenderness. PSYCH: Mood and affect appropriate. Results - Labs CBC & Chem 7: 01/31/18 04:20 01/31/18 04:20 Laboratory Results - last 24 hr 01/31/18 01/31/18 02/01/18 16:16 20:56 09:06 POC Glucose 431 H 393 H 291 H 02/01/18 12:35 POC Glucose 402 H Microbiology 01/29/18 22:45 Blood - Peripheral Aerobic Blood Culture - Preliminary No growth in 3 days 01/29/18 22:45 Blood - Peripheral Anaerobic Blood Culture - Preliminary No growth in 3 days 01/29/18 22:50 Blood - Peripheral Aerobic Blood Culture - Preliminary No growth in 3 days 01/29/18 22:50 Blood - Peripheral Anaerobic Blood Culture - Preliminary No growth in 3 days 01/30/18 00:02 Clean Catch Urine Urine Culture - Final >100,000 cfu/mL mixed gram positive [place] (probable contaminantes) 01/31/18 10:00 Urine - Clean Catch Urine Streptococcus pneumoniae Antigen ( M - Final Presumptive negative for streptococcus pneumoniae antigen, suggesting no current or recent infection. Infection due to Streptococcus pneumoniae cannot be ruled out since the antigen present in the sample may be below the detection limit of the test. 01/31/18 10:00 Urine - Clean Catch Urine Legionella Antigen - Final Presumptive negative for Legionella pneumophila serogroup 1 antigen in urine, suggesting no recent or recurrent infection. Infection due to Legionella cannot be ruled out since other serogroups and species may cause disease, antigen may not be present in urine in early infection, and the level of antigen present in the urine may be below the detection limit of the test. Assessment and Plan - Plan Acute on chronic respiratory failure The pt has a history of COPD and asthma. She is on monthly infusions via a port prescribed by her dandy operator. Pulmonology consult appreciated. CT showed: Patchy alveolar consolidation noted within the anterior aspect of the right lower lobe as well as the superior aspect of the right middle lobe consistent with probable focal pneumonia. -continue Symbicort. -IV Levaquin, renally dosed. -incentive spirometry, PT eval. -oxygen and standing nebs. -Promethazine/codeine for cough. -IgE level pending. DM Status post insulin drip. Exacerbated by steroids. -Levemir 30 units BID, aspart 6 units with meals, ISS. Adjust regimen as needed. HTN On HCTZ as an outpt. -hold HCTZ as hyponatremic and with hypokalemia. -clonidine as needed. -add amlodipine 5 mg daily. Hypokalemia Likely s/t HCTZ. -d/c HCTZ. -follow BMP and replete as needed. PPx: Heparin Discharge Planning: Awaiting clinical improvement
[2018-02-01] MEDS: amLODIPine 5 MG Tablet PO SCH (13:40)
[2018-02-01] MEDS ORDERED: Benzonatate 100 MG Capsule PO PRN (18:43)
--- NOTE | 2018-02-01 19:08 | XR ---
EXAM DATE: 02/01/2018 6:54 PM EDT AGE/SEX: 52 years / Female INDICATIONS: Chest pain CLINICAL DATA: This is the patient's subsequent encounter. Patient reports that signs and symptoms h ave been present for 4 - 6 days and indicates a pain score of 0/10. MEDICAL/SURGICAL HISTORY: . Chronic obstructive pulmonary disease. Diabetes. Asthma. HTN, ovar lizbet cancer . Infusaport COMPARISON: [facility], CHEST 1V SINGLE AP, 01/29/2018. . FINDINGS: Odkzsl-k-Boxz tip is in the right brachiocephalic vein and is now looped proximally into the right in ternal jugular vein. There is a second catheter overlying the upper right chest which may be outside the patient. Mild basilar atelectasis. No pneumothorax. Heart size mildly prominent. CONCLUSION: Mild basilar atelectasis. Change in position of right Wiewyh-t-Tzvt since January 29. Electronically signed by: Jignesh Parsons MD 02/01/2018 7:06 PM EDT
--- NOTE | 2018-02-01 19:52 | P.PNPL ---
Subjective Interval history: 52 YOWF with severe COPD, Br asthma, steroid dependent 20-40 mg daily Has worsening sob, wheezing Cough, difficult to expactorate no Fever Physical Exam Vital signs: Vital Signs 01/31/18 20:00 01/31/18 20:07 02/01/18 00:00 Temperature 97.7 F 98.1 F Pulse Rate 68 77 82 Respiratory Rate 18 16 18 Blood Pressure 161/85 H 164/91 H Pulse Oximetry 97 99 97 02/01/18 00:02 02/01/18 03:30 02/01/18 07:42 Temperature Pulse Rate 70 72 65 Respiratory Rate 16 16 16 Blood Pressure Pulse Oximetry 97 02/01/18 08:00 02/01/18 12:00 02/01/18 12:22 Temperature 97.8 F 97.4 F L Pulse Rate 67 79 92 H Respiratory Rate 18 18 16 Blood Pressure 181/86 H 197/95 H Pulse Oximetry 96 98 02/01/18 16:00 02/01/18 16:16 02/01/18 19:22 Temperature 97.1 F L Pulse Rate 74 70 78 Respiratory Rate 18 16 21 Blood Pressure 157/83 H Pulse Oximetry 98 98 Intake & Output 02/01/18 02/01/18 02/02/18 06:59 18:59 06:59 Intake Total 440 / 440 300 / 300 Balance 440 / 440 300 / 300 Weight 69 kg Intake: IV 300 / 300 Levaquin 750 mg Premix Inj 150 300 / 300 ML @ 100 mls/hr IV.SIG Q24H [facility] Rx#:[id number] Oral 440 / 440 Other: # Voids 1 Date of Last Bowel Movement 01/30/18 GENERAL: MBMN SOB SKIN: Warm and dry. HEAD: Normocephalic. EYES: No scleral icterus. No injection or drainage. NECK: Supple, trachea midline. No JVD or lymphadenopathy. Uses accessory muscles CARDIOVASCULAR: Regular rate and rhythm without murmurs, gallops, or rubs. RESPIRATORY: Breath sounds equal bilaterally. No accessory muscle use. Bilat exp rhonchi GASTROINTESTINAL: Abdomen soft, non-tender, nondistended. MUSCULOSKELETAL: No cyanosis, or edema. BACK: Nontender without obvious deformity. No CVA tenderness. Assessment and Plan - Plan IMPRESSION: Bronchial astma exac Severe COPD HTN DM Anxiety PLAN: Increase Solumedrol 80 mg q 6 hrs Monitor BS Aerosol nebs Symicort 2 puffs bid SQ Heparin Robitussin Ac cough syp
[2018-02-01 20:08] LABS: ABG Base Excess 1.6 mmol/L (-2-2); ABG PCO2 40 mmHg (38-42); ABG PO2 84 mmHg (61-120)
[2018-02-01] MEDS: MethylPREDNISolone Sod Succinate Inj 125 MG/2 ML Vial IV.PUSH SCH (20:31)
[2018-02-01] MEDS: guaiFENesin/Codeine Syrup 200 MG/20 MG 10 ML UDC PO SCH ×2 (20:36→23:55)
[2018-02-02] MEDS: MethylPREDNISolone Sod Succinate Inj 125 MG/2 ML Vial IV.PUSH SCH ×4 (01:47→20:25)
[2018-02-02] MEDS: guaiFENesin/Codeine Syrup 200 MG/20 MG 10 ML UDC PO SCH ×3 (06:05→18:47)
[2018-02-02] MEDS: Heparin - SQ 10,000 UNITS/ML Vial SQ SCH ×4 (06:05→23:10)
[2018-02-02] MEDS ORDERED: Cathflo Activase Inj 2 MG Vial I-CATHETER ONE (08:34)
[2018-02-02] MEDS: Insulin NovoLOG Aspart Correctional Sugar Inj SQ SCH ×4 (09:16→20:25)
[2018-02-02] MEDS: Budesonide-Formoterol 160/4.5 MCG 6 GM Inhaler INH SCH ×2 (09:17→20:26)
[2018-02-02] MEDS: Insulin Detemir Inj 1,000 UNIT/10 ML Vial SQ SCH ×2 (09:29→20:25)
[2018-02-02] MEDS: amLODIPine 5 MG Tablet PO SCH (09:30)
[2018-02-02] MEDS: Pantoprazole Sodium 20 MG DR Tablet PO SCH (09:31)
[2018-02-02] MEDS ORDERED: amLODIPine 5 MG Tablet PO ONE (10:50)
[2018-02-02 11:07] LABS: Anion Gap 7 meq/L (5-15); Blood Urea Nitrogen 19 mg/dL (7-18); Calcium 8.4 mg/dL (8.5-10.1); Carbon Dioxide 29.9 meq/L (21.0-32.0); Chloride 98 meq/L (98-107); Glomerular Filtration Rate 77 mL/min (>89); Glucose,Random 394 mg/dL (74-106); Magnesium 1.8 mg/dL (1.5-2.5); Phosphorus 3.4 mg/dL (2.5-4.9); Potassium 4.1 meq/L (3.5-5.1); Sodium 135 meq/L (136-145)
--- NOTE | 2018-02-02 11:23 | P.PNPL ---
Subjective Interval history: 52 YOWF with severe COPD, Br asthma, steroid dependent 20-40 mg daily Has worsening sob, wheezing Cough, difficult to expactorate no Fever BP high c/o itching Feels weak, dizzy on walking Physical Exam Vital signs: Vital Signs 02/01/18 12:00 02/01/18 12:22 02/01/18 16:00 Temperature 97.4 F L 97.1 F L Pulse Rate 79 92 H 74 Respiratory Rate 18 16 18 Blood Pressure 197/95 H 157/83 H Pulse Oximetry 98 98 02/01/18 16:16 02/01/18 19:22 02/01/18 20:00 Temperature 97.3 F L Pulse Rate 70 78 88 Respiratory Rate 16 21 19 Blood Pressure 186/86 H Pulse Oximetry 98 99 02/02/18 00:00 02/02/18 04:40 02/02/18 08:00 Temperature 97.7 F 97.3 F L Pulse Rate 71 66 66 Respiratory Rate 17 20 16 Blood Pressure 200/97 H 190/95 H Pulse Oximetry 95 98 02/02/18 08:26 02/02/18 08:27 Temperature Pulse Rate 65 Respiratory Rate 20 Blood Pressure Pulse Oximetry 95 Intake & Output 02/01/18 02/02/18 02/02/18 18:59 06:59 18:59 Intake Total 300 / 300 Balance 300 / 300 Weight 69 kg Intake: IV 300 / 300 Levaquin 750 mg Premix Inj 150 300 / 300 ML @ 100 mls/hr IV.SIG Q24H [facility] Rx#:[id number] Other: # Voids 1 GENERAL: Exp rhonchi SKIN: Warm and dry. HEAD: Normocephalic. EYES: No scleral icterus. No injection or drainage. NECK: Supple, trachea midline. No JVD or lymphadenopathy. CARDIOVASCULAR: Regular rate and rhythm without murmurs, gallops, or rubs. RESPIRATORY: Breath sounds equal bilaterally. No accessory muscle use. GASTROINTESTINAL: Abdomen soft, non-tender, nondistended. MUSCULOSKELETAL: No cyanosis, or edema. BACK: Nontender without obvious deformity. No CVA tenderness. Assessment and Plan - Plan IMPRESSION: Bronchial astma exac Severe COPD HTN DM Anxiety PLAN: Solumedrol 80 mg q 6 hrs Monitor BS Aerosol nebs Symicort 2 puffs bid SQ Heparin Robitussin Ac cough syp Monitor BP benadryl 25 mg q 6 hrs po prn.
--- NOTE | 2018-02-02 14:09 | P.PNIM ---
Subjective Interval history: The patient is very upset about her situation. She says her breathing has been poor for the past 20 years. She says she always goes to the emergency department. She says sometimes her tongue and neck swell up very quickly and she needs to be intubated. She does endorse anxiety. Physical Exam Vital signs: Vital Signs 02/01/18 16:00 02/01/18 16:16 02/01/18 19:22 Temperature 97.1 F L Pulse Rate 74 70 78 Respiratory Rate 18 16 21 Blood Pressure 157/83 H Pulse Oximetry 98 98 02/01/18 20:00 02/02/18 00:00 02/02/18 04:40 Temperature 97.3 F L 97.7 F Pulse Rate 88 71 66 Respiratory Rate 19 17 20 Blood Pressure 186/86 H 200/97 H Pulse Oximetry 99 95 98 02/02/18 08:00 02/02/18 08:26 02/02/18 08:27 Temperature 97.3 F L Pulse Rate 66 65 Respiratory Rate 16 20 Blood Pressure 190/95 H Pulse Oximetry 95 02/02/18 11:52 Temperature 97.4 F L Pulse Rate 84 Respiratory Rate 18 Blood Pressure 190/104 H Pulse Oximetry Intake & Output 02/01/18 02/02/18 02/02/18 18:59 06:59 18:59 Intake Total 300 / 300 150 / 150 Balance 300 / 300 150 / 150 Weight 69 kg Intake: IV 300 / 300 150 / 150 Levaquin 750 mg Premix Inj 150 300 / 300 150 / 150 ML @ 100 mls/hr IV.SIG Q24H [facility] Rx#:[id number] Other: # Voids 1 Narrative: GENERAL: Coughing, no distress. SKIN: Warm and dry. HEENT: Normocephalic. No scleral icterus. No injection or drainage. NECK: Supple, trachea midline. No JVD or lymphadenopathy. CARDIOVASCULAR: Regular rate and rhythm without murmurs, gallops, or rubs. RESPIRATORY: Moderate air entry, scattered wheezing noted, bibasilar diminished breath sounds. GASTROINTESTINAL: Abdomen soft, non-tender, nondistended. MUSCULOSKELETAL: No cyanosis, or edema. BACK: Nontender without obvious deformity. No CVA tenderness. PSYCH: Teary-eyed. Results - Labs CBC & Chem 7: 01/31/18 04:20 02/02/18 10:40 Laboratory Results - last 24 hr 02/01/18 02/01/18 02/02/18 19:57 20:30 07:15 Puncture Site Right radial Patient Temperature 98.6 O2 Saturation 94 ABG pH 7.42 ABG pCO2 40 ABG pO2 84 ABG HCO3 26 ABG O2 Content 19.4 ABG Base Excess 1.6 ABG Methemoglobin 1.3 Gomez Test Present Hemoglobin 14.6 Carboxyhemoglobin 1.1 O2 Delivery Device Nasal cannula Liter Flow 2.50 Inspired O2 32 Critical Value No Sodium Potassium Chloride Carbon Dioxide Anion Gap BUN Creatinine Estimated GFR POC Glucose 225 H Random Glucose Calcium Phosphorus Magnesium Troponin I 0.02 02/02/18 02/02/18 10:40 11:26 Puncture Site Patient Temperature O2 Saturation ABG pH ABG pCO2 ABG pO2 ABG HCO3 ABG O2 Content ABG Base Excess ABG Methemoglobin Gomez Test Hemoglobin Carboxyhemoglobin O2 Delivery Device Liter Flow Inspired O2 Critical Value Sodium 135 L Potassium 4.1 Chloride 98 Carbon Dioxide 29.9 Anion Gap 7 BUN 19 H Creatinine 0.78 Estimated GFR 77 L POC Glucose 338 H Random Glucose 394 H Calcium 8.4 L Phosphorus 3.4 Magnesium 1.8 Troponin I Less than 0.02 L Microbiology 01/29/18 22:45 Blood - Peripheral Aerobic Blood Culture - Preliminary No growth in 4 days 01/29/18 22:45 Blood - Peripheral Anaerobic Blood Culture - Preliminary No growth in 4 days 01/29/18 22:50 Blood - Peripheral Aerobic Blood Culture - Preliminary No growth in 4 days 01/29/18 22:50 Blood - Peripheral Anaerobic Blood Culture - Preliminary No growth in 4 days - Imaging Impressions Chest X-Ray 02/01/18 18:38 CONCLUSION: Mild basilar atelectasis. Change in position of right [id number] since January 29. Assessment and Plan - Plan Acute on chronic respiratory failure The pt has a history of COPD and asthma. 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 Pulmonology consult appreciated. CT showed: Patchy alveolar consolidation noted within the anterior aspect of the right lower lobe as well as the superior aspect of the right middle lobe consistent with probable focal pneumonia. -continue Symbicort. -IV Levaquin, renally dosed. -IV Solumedrol increased by pulmonology. -incentive spirometry, PT eval. -oxygen and standing nebs. -Robitussin AC/ Tessalon Arleen for cough. -IgE level pending. DM Status post insulin drip. Exacerbated by steroids. -Levemir 35 units BID, aspart 8 units with meals, ISS. Adjust regimen as needed. HTN On HCTZ as an outpt. -hold HCTZ as hyponatremic and with hypokalemia. -clonidine as needed. -add amlodipine 5 mg daily. Hypokalemia Likely s/t HCTZ. -d/c HCTZ. -follow BMP and replete as needed. Anxiety S/t respiratory distress. -Ativan as needed. PPx: Heparin Discharge Planning: Awaiting clinical improvement
--- NOTE | 2018-02-02 15:07 | ECG ---
Date Performed: 02/01/2018 Time Performed: 19:16:50 PTAGE: 52 years EKG: Sinus rhythm NONSPECIFIC T-WAVE ABNORMALITY Since the previous tracing, no significant change noted BORDERLINE EC G PREVIOUS TRACING : 01/29/2018 22.11 DOCTOR: Alexandro Valladares Interpretating Date/Time 02/02/2018 14:55:16
[2018-02-02] MEDS: hydrALAZINE 25 MG Tablet PO SCH ×2 (18:47)
[2018-02-03] MEDS: guaiFENesin/Codeine Syrup 200 MG/20 MG 10 ML UDC PO SCH ×4 (00:15→17:09)
[2018-02-03] MEDS: MethylPREDNISolone Sod Succinate Inj 125 MG/2 ML Vial IV.PUSH SCH ×4 (01:45→21:03)
[2018-02-03] MEDS: LORazepam 1 MG Tablet PO PRN ×2 (01:50→21:04)
[2018-02-03] MEDS: Heparin - SQ 10,000 UNITS/ML Vial SQ SCH ×3 (05:49→21:04)
[2018-02-03] MEDS: Insulin Detemir Inj 1,000 UNIT/10 ML Vial SQ SCH ×2 (09:02→21:04)
[2018-02-03] MEDS: Insulin NovoLOG Aspart Correctional Sugar Inj SQ SCH ×4 (09:02→21:03)
[2018-02-03] MEDS: hydrALAZINE 25 MG Tablet PO SCH ×3 (09:03→17:09)
[2018-02-03] MEDS: Pantoprazole Sodium 20 MG DR Tablet PO SCH (09:03)
[2018-02-03] MEDS: amLODIPine 10 MG Tablet PO SCH (09:03)
[2018-02-03] MEDS: Budesonide-Formoterol 160/4.5 MCG 6 GM Inhaler INH SCH ×2 (09:04→21:05)
--- NOTE | 2018-02-03 14:47 | P.DCO ---
- Physical Therapy Order: Evaluate and treat, Improve ambulation, Strength and gait training - Home Health Nursing Order: Medical education, Signs/symptoms of disease process, Oxygen administration education, Nursing assessment with vital signs - Case Management Consult No - Certification I have seen patient Daly Alejandre on 02/03/18. My clinical findings support the need for the requested home health care services because: Limited mobility due to disease progression, Patient has SOB, Deconditioned with increased weakness, Limited ability to care for self I certify that my clinical findings support that this patient is homebound because: Hx COPD - exertion dyspnea/weakness, Unsafe to leave home unassisted
--- NOTE | 2018-02-03 14:54 | P.PNIM ---
Subjective Interval history: The patient was feeling better today. She said that she would like to keep the steroids elevated because she is feeling better. She mentioned that she sometimes coughs up clots and vomits up clots. No other acute concerns. Discussed with nursing. Physical Exam Vital signs: Vital Signs 02/02/18 16:00 02/02/18 16:09 02/02/18 20:00 Temperature 97.7 F 97.3 F L Pulse Rate 83 73 87 Respiratory Rate 18 16 17 Blood Pressure 147/84 H 136/90 Pulse Oximetry 97 96 02/02/18 21:12 02/03/18 00:00 02/03/18 01:04 Temperature 97.6 F Pulse Rate 72 79 72 Respiratory Rate 16 18 19 Blood Pressure 152/88 H Pulse Oximetry 95 97 97 02/03/18 08:00 02/03/18 08:35 02/03/18 12:00 Temperature 98.0 F 97.3 F L Pulse Rate 85 91 H Respiratory Rate 17 17 Blood Pressure 164/103 H 172/94 H Pulse Oximetry 95 95 96 Intake & Output 02/02/18 02/03/18 02/03/18 18:59 06:59 18:59 Intake Total 150 / 150 700 / 700 150 / 150 Balance 150 / 150 700 / 700 150 / 150 Weight 68.6 kg Intake: IV 150 / 150 150 / 150 Levaquin 750 mg Premix Inj 150 150 / 150 150 / 150 ML @ 100 mls/hr IV.SIG Q24H [facility] Rx#:[id number] Oral 700 / 700 Other: # Voids 1 Date of Last Bowel Movement 01/30/18 # Bowel Movements 1 Narrative: GENERAL: Coughing, no distress. SKIN: Warm and dry. HEENT: Normocephalic. No scleral icterus. No injection or drainage. NECK: Supple, trachea midline. No JVD or lymphadenopathy. CARDIOVASCULAR: Regular rate and rhythm without murmurs, gallops, or rubs. RESPIRATORY: Moderate air entry, scattered wheezing noted, bibasilar diminished breath sounds. GASTROINTESTINAL: Abdomen soft, non-tender, nondistended. MUSCULOSKELETAL: No cyanosis, or edema. BACK: Nontender without obvious deformity. No CVA tenderness. PSYCH: Mildly anxious. Results - Labs CBC & Chem 7: 01/31/18 04:20 02/02/18 10:40 Laboratory Results - last 24 hr 01/30/18 02/01/18 02/01/18 14:25 18:16 20:19 POC Glucose 206 H 311 H IgE 1580.0 H 02/02/18 02/02/18 02/03/18 18:46 20:22 08:54 POC Glucose 316 H 364 H 299 H IgE 02/03/18 12:02 POC Glucose 311 H IgE Microbiology 01/29/18 22:45 Blood - Peripheral Aerobic Blood Culture - Final No growth in 5 days 01/29/18 22:45 Blood - Peripheral Anaerobic Blood Culture - Final No growth in 5 days 01/29/18 22:50 Blood - Peripheral Aerobic Blood Culture - Final No growth in 5 days 01/29/18 22:50 Blood - Peripheral Anaerobic Blood Culture - Final No growth in 5 days Assessment and Plan - Plan Acute on chronic respiratory failure The pt has a history of COPD and asthma. 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 Pulmonology consult appreciated. CT showed: Patchy alveolar consolidation noted within the anterior aspect of the right lower lobe as well as the superior aspect of the right middle lobe consistent with probable focal pneumonia. IgE level 1580. -continue Symbicort. -IV Levaquin, renally dosed. -sputum culture. -IV Solumedrol increased by pulmonology. Continue high dose for now. -incentive spirometry, PT eval. -oxygen and standing nebs. -Robitussin AC/ Tessalon Perles for cough. DM Status post insulin drip. Exacerbated by steroids. -Levemir 40 units BID, aspart 10 units with meals, ISS. Adjust regimen as needed. HTN On HCTZ as an outpt. -hold HCTZ as hyponatremic and with hypokalemia. -clonidine as needed. -add amlodipine 10 mg daily, hydralazine 25 mg TID. Hypokalemia Likely s/t HCTZ. -d/c HCTZ. -follow BMP and replete as needed. Anxiety S/t respiratory distress. -Ativan as needed. PPx: Heparin Discharge Planning: Awaiting clinical improvement
--- NOTE | 2018-02-03 18:38 | P.PNPL ---
Subjective Interval history: 52 YOWF with severe COPD, Br asthma, steroid dependent 20-40 mg daily Has worsening sob, wheezing Cough, difficult to expactorate no Fever BP high c/o itching Breathing little better today Physical Exam Vital signs: Vital Signs 02/02/18 20:00 02/02/18 21:12 02/03/18 00:00 Temperature 97.3 F L 97.6 F Pulse Rate 87 72 79 Respiratory Rate 17 16 18 Blood Pressure 136/90 152/88 H Pulse Oximetry 96 95 97 02/03/18 01:04 02/03/18 08:00 02/03/18 08:35 Temperature 98.0 F Pulse Rate 72 85 Respiratory Rate 19 17 Blood Pressure 164/103 H Pulse Oximetry 97 95 95 02/03/18 12:00 02/03/18 16:00 Temperature 97.3 F L 97.7 F Pulse Rate 91 H 77 Respiratory Rate 17 17 Blood Pressure 172/94 H 149/83 H Pulse Oximetry 96 97 Intake & Output 02/02/18 02/03/18 02/03/18 18:59 06:59 18:59 Intake Total 150 / 150 700 / 700 150 / 150 Balance 150 / 150 700 / 700 150 / 150 Weight 68.6 kg Intake: IV 150 / 150 150 / 150 Levaquin 750 mg Premix Inj 150 150 / 150 150 / 150 ML @ 100 mls/hr IV.SIG Q24H [facility] Rx#:[id number] Oral 700 / 700 Other: # Voids 1 Date of Last Bowel Movement 01/30/18 # Bowel Movements 1 GENERAL: MBMN Mild sob SKIN: Warm and dry. HEAD: Normocephalic. EYES: No scleral icterus. No injection or drainage. NECK: Supple, trachea midline. No JVD or lymphadenopathy. CARDIOVASCULAR: Regular rate and rhythm without murmurs, gallops, or rubs. RESPIRATORY: Breath sounds equal bilaterally. No accessory muscle use. Exp rhonchi GASTROINTESTINAL: Abdomen soft, non-tender, nondistended. MUSCULOSKELETAL: No cyanosis, or edema. BACK: Nontender without obvious deformity. No CVA tenderness. Assessment and Plan - Plan IMPRESSION: Bronchial astma exac Severe COPD HTN DM Anxiety PLAN: Solumedrol 80 mg q 6 hrs Monitor BS Aerosol nebs Symicort 2 puffs bid SQ Heparin Robitussin Ac cough syp Monitor BP OOB and ambulate
[2018-02-04] MEDS: guaiFENesin/Codeine Syrup 200 MG/20 MG 10 ML UDC PO SCH ×5 (00:01→23:57)
[2018-02-04] MEDS ORDERED: Melatonin 5 MG Tablet PO ONE (00:44)
[2018-02-04] MEDS: MethylPREDNISolone Sod Succinate Inj 125 MG/2 ML Vial IV.PUSH SCH ×3 (01:39→13:34)
[2018-02-04] MEDS: Heparin - SQ 10,000 UNITS/ML Vial SQ SCH ×3 (05:28→22:36)
[2018-02-04 06:30] LABS: Calcium 8.6 mg/dL (8.5-10.1); Magnesium 2.2 mg/dL (1.5-2.5); Phosphorus 3.3 mg/dL (2.5-4.9); Potassium 3.9 meq/L (3.5-5.1)
[2018-02-04] MEDS: Insulin NovoLOG Aspart Correctional Sugar Inj SQ SCH ×4 (09:07→20:53)
[2018-02-04] MEDS: hydrALAZINE 25 MG Tablet PO SCH ×3 (09:08→18:45)
[2018-02-04] MEDS: Insulin Detemir Inj 1,000 UNIT/10 ML Vial SQ SCH ×2 (09:08→20:53)
[2018-02-04] MEDS: Pantoprazole Sodium 20 MG DR Tablet PO SCH (09:08)
[2018-02-04] MEDS: amLODIPine 10 MG Tablet PO SCH (09:09)
[2018-02-04] MEDS: Budesonide-Formoterol 160/4.5 MCG 6 GM Inhaler INH SCH ×2 (09:12→20:55)
--- NOTE | 2018-02-04 15:59 | P.PNIM ---
Subjective Interval history: The patient said that she felt well. She has been ambulating. She says the coughing medication only slightly works. She wanted to know what she should do about her scheduled chemotherapy session. She says at home she generally has frequent small meals. Discussed with nursing. Physical Exam Vital signs: Vital Signs 02/03/18 16:00 02/03/18 20:00 02/04/18 00:00 Temperature 97.7 F 97.9 F 97.3 F L Pulse Rate 77 94 H 86 Respiratory Rate 17 18 18 Blood Pressure 149/83 H 171/98 H 158/85 H Pulse Oximetry 97 96 97 02/04/18 08:00 02/04/18 12:00 Temperature 97.3 F L 97.1 F L Pulse Rate 66 99 H Respiratory Rate 17 18 Blood Pressure 158/89 H 140/78 Pulse Oximetry 97 96 Intake & Output 02/03/18 02/04/18 02/04/18 18:59 06:59 18:59 Intake Total 1110 / 1110 150 / 150 Balance 1110 / 1110 150 / 150 Weight 69.8 kg Intake: IV 150 / 150 150 / 150 Levaquin 750 mg Premix Inj 150 150 / 150 150 / 150 ML @ 100 mls/hr IV.SIG Q24H [facility] Rx#:[id number] Oral 960 / 960 Other: # Voids 3 1 Date of Last Bowel Movement 01/30/18 Narrative: GENERAL: Coughing, no distress. SKIN: Warm and dry. HEENT: Normocephalic. No scleral icterus. No injection or drainage. NECK: Supple, trachea midline. No JVD or lymphadenopathy. CARDIOVASCULAR: Regular rate and rhythm without murmurs, gallops, or rubs. RESPIRATORY: Moderate air entry, scattered wheezing noted, bibasilar diminished breath sounds. GASTROINTESTINAL: Abdomen soft, non-tender, nondistended. MUSCULOSKELETAL: No cyanosis, or edema. BACK: Nontender without obvious deformity. No CVA tenderness. PSYCH: Mood and affect appropriate. Results - Labs CBC & Chem 7: 01/31/18 04:20 02/04/18 05:30 Laboratory Results - last 24 hr 02/03/18 02/03/18 02/04/18 16:25 20:53 05:30 Sodium 139 Potassium 3.9 Chloride 101 Carbon Dioxide 30.0 Anion Gap 8 BUN 21 H Creatinine 0.81 Estimated GFR 74 L POC Glucose 209 H 360 H Random Glucose 195 H D Calcium 8.6 Phosphorus 3.3 Magnesium 2.2 02/04/18 02/04/18 07:41 12:46 Sodium Potassium Chloride Carbon Dioxide Anion Gap BUN Creatinine Estimated GFR POC Glucose 182 H 401 H Random Glucose Calcium Phosphorus Magnesium Microbiology 02/03/18 14:20 Sputum - Expectorated Sputum Gram Stain - Final 02/03/18 14:20 Sputum - Expectorated Sputum Sputum Culture - Preliminary Heavy growth normal respiratory [place] at 24 hours Assessment and Plan - Plan Acute on chronic respiratory failure The pt has a history of COPD and asthma. 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 Pulmonology consult appreciated. CT showed: Patchy alveolar consolidation noted within the anterior aspect of the right lower lobe as well as the superior aspect of the right middle lobe consistent with probable focal pneumonia. IgE level 1580. -continue Symbicort. -IV Levaquin, renally dosed. -sputum culture growing normal [place] so far. -IV Solumedrol increased by pulmonology. Continue high dose for now. -incentive spirometry, PT eval. -oxygen and nebs. -Robitussin AC/ Tessalon Perles for cough. DM Status post insulin drip. Exacerbated by steroids. -Levemir 40 units BID, aspart 10 units with meals, ISS. Adjust regimen as needed. -change diet to frequent, small meals. HTN On HCTZ as an outpt. -hold HCTZ as hyponatremic and with hypokalemia. -clonidine as needed. -add amlodipine 10 mg daily, hydralazine 25 mg TID. Improved. Hypokalemia Likely s/t HCTZ. -d/c HCTZ. -follow BMP and replete as needed. Anxiety S/t respiratory distress. -Ativan as needed. PPx: Heparin Discharge Planning: Awaiting clinical improvement and pulmonology clearance
--- NOTE | 2018-02-04 16:50 | P.PNPL ---
Subjective Interval history: 52 YOWF with severe COPD, Br asthma, steroid dependent 20-40 mg daily Has worsening sob, wheezing Cough, difficult to expactorate no Fever Breathing little better today Anxious to go home Physical Exam Vital signs: Vital Signs 02/03/18 20:00 02/04/18 00:00 02/04/18 08:00 Temperature 97.9 F 97.3 F L 97.3 F L Pulse Rate 94 H 86 66 Respiratory Rate 18 18 17 Blood Pressure 171/98 H 158/85 H 158/89 H Pulse Oximetry 96 97 97 02/04/18 12:00 Temperature 97.1 F L Pulse Rate 99 H Respiratory Rate 18 Blood Pressure 140/78 Pulse Oximetry 96 Intake & Output 02/03/18 02/04/18 02/04/18 18:59 06:59 18:59 Intake Total 1110 / 1110 150 / 150 Balance 1110 / 1110 150 / 150 Weight 69.8 kg Intake: IV 150 / 150 150 / 150 Levaquin 750 mg Premix Inj 150 150 / 150 150 / 150 ML @ 100 mls/hr IV.SIG Q24H [facility] Rx#:[id number] Oral 960 / 960 Other: # Voids 3 1 Date of Last Bowel Movement 01/30/18 02/03/18 GENERAL: MBMN Mild sob SKIN: Warm and dry. HEAD: Normocephalic. EYES: No scleral icterus. No injection or drainage. NECK: Supple, trachea midline. No JVD or lymphadenopathy. CARDIOVASCULAR: Regular rate and rhythm without murmurs, gallops, or rubs. RESPIRATORY: Breath sounds equal bilaterally. No accessory muscle use. Exp rhonchi GASTROINTESTINAL: Abdomen soft, non-tender, nondistended. MUSCULOSKELETAL: No cyanosis, or edema. BACK: Nontender without obvious deformity. No CVA tenderness. Assessment and Plan - Plan IMPRESSION: Bronchial astma exac Severe COPD HTN DM Anxiety PLAN: DC Solumedrol Prednisone 20 mg tid Monitor BS Aerosol nebs Symicort 2 puffs bid SQ Heparin Robitussin Ac cough syp Monitor BP OOB and ambulate
[2018-02-04] MEDS: predniSONE 10 MG Tablet PO SCH (18:45)
[2018-02-04] MEDS: Melatonin 5 MG Tablet PO PRN (23:57)
[2018-02-05] MEDS: guaiFENesin/Codeine Syrup 200 MG/20 MG 10 ML UDC PO SCH ×3 (05:39→17:45)
[2018-02-05] MEDS: Heparin - SQ 10,000 UNITS/ML Vial SQ SCH ×3 (05:39→21:24)
[2018-02-05 08:31] LABS: Baso # (Auto) 0.1 th/mm3 (0.0-0.2); Baso % (Auto) 0.4 % (0.0-2.0); Hematocrit 41.8 % (35.0-46.0); Hemoglobin 14.3 gm/dL (11.6-15.3); Lymph # (Auto) 2.4 th/mm3 (1.0-4.8); Lymph % (Auto) 11.7 % (9.0-44.0); Mean Corpuscular HGB Conc 34.3 % (32.0-36.0); Mean Corpuscular Hemoglobin 30.6 pg (27.0-34.0); Mean Corpuscular Volume 89.3 fL (80.0-100.0); Mean Platelet Volume 8.8 fL (7.0-11.0); Mono # (Auto) 1.5 th/mm3 (0.0-0.9); Mono % (Auto) 7.4 % (0.0-8.0); Neut # (Auto) 16.4 th/mm3 (1.8-7.7); Neut % (Auto) 80.5 % (16.0-70.0); Platelet Count 357 th/mm3 (150-450); Red Blood Count 4.68 mil/mm3 (4.00-5.30); Red Cell Distribution Width 13.1 % (11.6-17.2); White Blood Count 20.3 th/mm3 (4.0-11.0)
[2018-02-05 08:56] LABS: Calcium 8.5 mg/dL (8.5-10.1); Carbon Dioxide 32.8 meq/L (21.0-32.0); Magnesium 2.3 mg/dL (1.5-2.5); Potassium 3.1 meq/L (3.5-5.1)
[2018-02-05] MEDS: Pantoprazole Sodium 20 MG DR Tablet PO SCH (09:23)
[2018-02-05] MEDS: predniSONE 10 MG Tablet PO SCH ×3 (09:23→17:47)
[2018-02-05] MEDS: hydrALAZINE 25 MG Tablet PO SCH ×3 (09:23→17:47)
[2018-02-05] MEDS: amLODIPine 10 MG Tablet PO SCH (09:23)
[2018-02-05] MEDS: Spironolactone 25 MG Tablet PO SCH (09:24)
[2018-02-05] MEDS: Insulin Detemir Inj 1,000 UNIT/10 ML Vial SQ SCH ×2 (09:25→21:25)
[2018-02-05] MEDS: Insulin NovoLOG Aspart Correctional Sugar Inj SQ SCH ×4 (09:26→21:25)
[2018-02-05 09:42] LABS: Lymphocytes 12 % (9-44); Monocytes 6 % (0-8); Myelocytes 2 % (0-0)
[2018-02-05 09:43] LABS: Platelet Estimate Normal (Normal); Platelet Morphology Normal (Normal); RBC Morphology Normal (Normal)
[2018-02-05] MEDS ORDERED: Potassium Chloride 25 MEQ Effervescent Tablet PO ONE ×2 (11:00→16:00)
[2018-02-05] MEDS: Budesonide-Formoterol 160/4.5 MCG 6 GM Inhaler INH SCH ×2 (13:40→21:25)
--- NOTE | 2018-02-05 15:51 | P.PNIM ---
Subjective Interval history: The patient said she had a lot of nausea and vomiting yesterday. She said she was unable to keep her pills down. She says she feels nauseous today but has not been vomiting. She says her breathing is better. She had family at the bedside. Discussed with nursing. Physical Exam Vital signs: Vital Signs 02/04/18 16:00 02/04/18 20:00 02/04/18 20:25 Temperature 97.2 F L 98.3 F Pulse Rate 97 H 87 97 H Respiratory Rate 17 18 17 Blood Pressure 143/74 H 150/83 H Pulse Oximetry 97 96 97 02/05/18 00:00 02/05/18 08:00 02/05/18 08:28 Temperature 97.6 F 97.3 F L Pulse Rate 74 76 72 Respiratory Rate 18 17 18 Blood Pressure 158/89 H 185/95 H Pulse Oximetry 97 98 96 02/05/18 12:00 02/05/18 13:33 Temperature 97.6 F Pulse Rate 97 H 76 Respiratory Rate 18 16 Blood Pressure 176/92 H Pulse Oximetry 96 Intake & Output 02/04/18 02/05/18 02/05/18 18:59 06:59 18:59 Intake Total 1182 / 1182 320 / 320 150 / 150 Balance 1182 / 1182 320 / 320 150 / 150 Weight 68.7 kg Intake: IV 150 / 150 150 / 150 Levaquin 750 mg Premix Inj 150 150 / 150 150 / 150 ML @ 100 mls/hr IV.SIG Q24H [facility] Rx#:[id number] Oral 1032 / 1032 320 / 320 Other: # Voids 7 2 Date of Last Bowel Movement 02/04/18 # Bowel Movements 3 Narrative: GENERAL: Coughing, no distress. SKIN: Warm and dry. HEENT: Normocephalic. No scleral icterus. No injection or drainage. NECK: Supple, trachea midline. No JVD or lymphadenopathy. CARDIOVASCULAR: Regular rate and rhythm without murmurs, gallops, or rubs. RESPIRATORY: Moderate air entry, scattered wheezing noted, bibasilar diminished breath sounds. GASTROINTESTINAL: Abdomen soft, non-tender, nondistended. MUSCULOSKELETAL: No cyanosis, or edema. BACK: Nontender without obvious deformity. No CVA tenderness. PSYCH: Mood and affect appropriate. Results - Labs CBC & Chem 7: 02/05/18 05:46 02/05/18 05:46 Laboratory Results - last 24 hr 02/04/18 02/04/18 02/05/18 16:59 20:47 05:46 WBC 20.3 H RBC 4.68 Hgb 14.3 Hct 41.8 MCV 89.3 MCH 30.6 MCHC 34.3 RDW 13.1 Plt Count 357 MPV 8.8 Prelim Diff (Auto) Slide review pending Neut % (Auto) 80.5 H Lymph % (Auto) 11.7 [place] % (Auto) 7.4 Eos % (Auto) 0.0 Baso % (Auto) 0.4 Neut # (Auto) 16.4 H Lymph # (Auto) 2.4 [place] # (Auto) 1.5 H Eos # (Auto) 0.0 Baso # (Auto) 0.1 WBC Differential Manual diff final Seg Neuts % (Manual) 78 H Band Neuts % (Manual) 2 Lymphocytes % (Manual) 12 Monocytes % (Manual) 6 Myelocytes % (Man) 2 H Abs Neuts (Manual) 16.6 H Differential Comment . Platelet Estimate Normal Platelet Morphology Normal RBC Morphology Normal Sodium Potassium Chloride Carbon Dioxide Anion Gap BUN Creatinine Estimated GFR POC Glucose 275 H 275 H Random Glucose Calcium Magnesium 02/05/18 02/05/18 02/05/18 05:46 08:02 09:20 WBC RBC Hgb Hct MCV MCH MCHC RDW Plt Count MPV Prelim Diff (Auto) Neut % (Auto) Lymph % (Auto) [place] % (Auto) Eos % (Auto) Baso % (Auto) Neut # (Auto) Lymph # (Auto) [place] # (Auto) Eos # (Auto) Baso # (Auto) WBC Differential Seg Neuts % (Manual) Band Neuts % (Manual) Lymphocytes % (Manual) Monocytes % (Manual) Myelocytes % (Man) Abs Neuts (Manual) Differential Comment Platelet Estimate Platelet Morphology RBC Morphology Sodium 140 Potassium 3.1 L D Chloride 98 Carbon Dioxide 32.8 H Anion Gap 9 BUN 23 H Creatinine 0.77 Estimated GFR 78 L POC Glucose 89 104 Random Glucose 79 D Calcium 8.5 Magnesium 2.3 02/05/18 11:12 WBC RBC Hgb Hct MCV MCH MCHC RDW Plt Count MPV Prelim Diff (Auto) Neut % (Auto) Lymph % (Auto) [place] % (Auto) Eos % (Auto) Baso % (Auto) Neut # (Auto) Lymph # (Auto) [place] # (Auto) Eos # (Auto) Baso # (Auto) WBC Differential Seg Neuts % (Manual) Band Neuts % (Manual) Lymphocytes % (Manual) Monocytes % (Manual) Myelocytes % (Man) Abs Neuts (Manual) Differential Comment Platelet Estimate Platelet Morphology RBC Morphology Sodium Potassium Chloride Carbon Dioxide Anion Gap BUN Creatinine Estimated GFR POC Glucose 330 H Random Glucose Calcium Magnesium Microbiology 02/03/18 14:20 Sputum - Expectorated Sputum Gram Stain - Final 02/03/18 14:20 Sputum - Expectorated Sputum Sputum Culture - Final Heavy growth normal respiratory [place] Assessment and Plan - Plan Acute on chronic respiratory failure The pt has a history of COPD and asthma. She is on monthly infusions via a port prescribed by her engineering illustrator. Pulmonology consult appreciated. CT showed: Patchy alveolar consolidation noted within the anterior aspect of the right lower lobe as well as the superior aspect of the right middle lobe consistent with probable focal pneumonia. IgE level 1580. Sputum culture with normal [place]. -continue Symbicort. -IV Levaquin. -IV Solumedrol switched to prednisone. -incentive spirometry, PT eval. -oxygen and nebs. -Robitussin AC/ Tessalon Perles for cough. DM Status post insulin drip. Exacerbated by steroids. Glucose has been fluctuating. -Levemir 30 units BID, aspart 5 units with meals, ISS. Adjust regimen as needed. Dysphagia Chronic. Appreciated speech therapy evaluation. -GI consult pending. -recommend small, frequent meals. -antiemetics as needed. HTN On HCTZ as an outpt. -hold HCTZ as hyponatremic and with hypokalemia. -clonidine as needed. -add amlodipine 10 mg daily, hydralazine 25 mg TID. Hypokalemia Likely s/t HCTZ. -d/c HCTZ. -follow BMP and replete as needed. Anxiety S/t respiratory distress. -Ativan as needed. PPx: Heparin Discharge Planning: Await GI eval, also need pulmonary clearance.
--- NOTE | 2018-02-05 19:34 | MB ---
cc: Dion Bae MD DATE: 02/05/2018 REASON FOR GI CONSULTATION: Evaluation of dysphagia, abdominal pain. HISTORY OF PRESENT ILLNESS: A 52-year-old female who has a history of severe COPD, bronchial asthma, who was receiving infusion therapy with IgG from medical record retrieval specialist in [place]. She continues to have multiple episodes of shortness of breath, coughing, wheezing, which has required multiple ER and hospital visits and even admissions. She states the new infusion has been helping her. Although currently she is still having wheezing on her most recent exacerbation. Symptoms recently got worse. She had a persistent cough, chest tightness. In addition, she has been seen by in our practice for abdominal epigastric pain. She was scheduled for outpatient endoscopy. She reports to me that she has been having dysphagia and choking spells, unable to swallow solids or liquids at times. She feels food sticking in the midsternal region when she does swallow at times intermittently. She has had some reflux symptoms as well. I was asked to evaluate her further at this time. PAST HISTORY: Includes asthma, hyperlipidemia, ovarian cancer with chemotherapy in the past, COPD, diabetes, hypertension. FAMILY HISTORY: Pertinent for hypertension, lung disease. There is no history of colorectal cancer. SOCIAL HISTORY: She denies smoking at this time. She denies alcohol or illicit drug use. MEDICATIONS: Active Include: 1. Albuterol. 2. Bisacodyl. 3. Budesonide. 4. Clonidine. 5. Glucagon. 6. Ennhobpiuqw-fyznmbt-rahrrlz preparation. 7. Sodium chloride. 8. Levofloxacin. 9. Insulin. 10. Lactulose. 11. Pantoprazole daily. 12. Senokot as needed. ALLERGIES: She has multiple allergies. Please refer to the chart. These include: 1. AZITHROMYCIN. 2. BENAZEPRIL. 3. CAPTOPRIL. 4. EGGS. 5. ENALAPRIL. 6. FOSINOPRIL. 7. IODINE, 8. LISINOPRIL. 9. LOSARTAN. 10. PENICILLIN G. 11. POTASSIUM IODIDE. 12. SODIUM IODIDE. REVIEW OF SYSTEMS: A 12-point review of systems was mentioned in the HPI. She has had no hematemesis. She denies any gastrointestinal bleeding. LABORATORY DATA: Hemoglobin is stable. White count is up to 20,000 at this time. Blood sugars have been running between 275 and 350. Potassium is 3.1. Chest CT reveals alveolar consolidation in the right lobe consistent with probable focal pneumonia. She has a fatty liver noted as well. PHYSICAL EXAMINATION: GENERAL: Well-developed female, pleasant, alert. She is coughing slightly short of breath. VITAL SIGNS: Currently stable. She is currently afebrile. HEENT: Normocephalic, atraumatic. Sclerae are anicteric. Oral mucosa is dry. NECK: Supple. CARDIAC: S1, S2, tachycardic. CHEST: Reveals bilateral inspiratory and expiratory wheezes. ABDOMEN: Obese, but soft. Bowel sounds are present. No masses or organomegaly. No rebound tenderness. EXTREMITIES: Without cyanosis or edema. RECTAL: Deferred. NEUROLOGIC: She appears intact. SKIN: Does not reveal any unusual rashes. ASSESSMENT: A 52-year-old female with severe COPD, bronchial asthma with multiple exacerbations. The patient has had epigastric abdominal pain as well as an intermittent dysphagia for the last 1-2 years, getting worse. She feels choking spells probable globus sensation as well. She has difficulty with both liquids and solids. This raises the possibility of a motility-based disorder or cricopharyngeal dysphagia as well. PLAN: I have discussed this with the attending physician. She does not appear to be stable from a pulmonary standpoint to proceed with endoscopy. Therefore, we will obtain a barium swallow for now and make further recommendations. When she is more stable, we could consider EGD and/or dilatation. The procedure, risks and benefits were briefly discussed today. Would continue PPI therapy and follow closely. Thank you kindly for this consult. MD KARLEY Galvan/mick/janeth , 04:48 PM , 04:59 PM
--- NOTE | 2018-02-05 20:17 | P.PNPL ---
Subjective Interval history: 52 YOWF with severe COPD, Br asthma, steroid dependent 20-40 mg daily Has worsening sob, wheezing Cough, difficult to expactorate no Fever Breathing little better today Has nausea, abd discomfort GI Consulted Physical Exam Vital signs: Vital Signs 02/04/18 20:25 02/05/18 00:00 02/05/18 08:00 Temperature 97.6 F 97.3 F L Pulse Rate 97 H 74 76 Respiratory Rate 17 18 17 Blood Pressure 158/89 H 185/95 H Pulse Oximetry 97 97 98 02/05/18 08:28 02/05/18 12:00 02/05/18 13:33 Temperature 97.6 F Pulse Rate 72 97 H 76 Respiratory Rate 18 18 16 Blood Pressure 176/92 H Pulse Oximetry 96 96 02/05/18 16:00 02/05/18 19:51 Temperature 97.3 F L Pulse Rate 91 H 69 Respiratory Rate 18 18 Blood Pressure 120/71 Pulse Oximetry 96 97 Intake & Output 02/05/18 02/05/18 02/06/18 06:59 18:59 06:59 Intake Total 320 / 320 870 / 870 Balance 320 / 320 870 / 870 Weight 68.7 kg Intake: IV 150 / 150 Levaquin 750 mg Premix Inj 150 150 / 150 ML @ 100 mls/hr IV.SIG Q24H [facility] Rx#:[id number] Oral 320 / 320 720 / 720 Other: # Voids 2 4 Date of Last Bowel Movement 02/03/18 GENERAL: MBMN Mild sob SKIN: Warm and dry. HEAD: Normocephalic. EYES: No scleral icterus. No injection or drainage. NECK: Supple, trachea midline. No JVD or lymphadenopathy. CARDIOVASCULAR: Regular rate and rhythm without murmurs, gallops, or rubs. RESPIRATORY: Breath sounds equal bilaterally. No accessory muscle use. Exp rhonchi GASTROINTESTINAL: Abdomen soft, non-tender, nondistended. MUSCULOSKELETAL: No cyanosis, or edema. BACK: Nontender without obvious deformity. No CVA tenderness. Assessment and Plan - Plan IMPRESSION: Bronchial astma exac Severe COPD HTN DM Anxiety PLAN: DC Solumedrol Prednisone 20 mg tid Monitor BS Aerosol nebs Symicort 2 puffs bid SQ Heparin Robitussin Ac cough syp Monitor BP OOB and ambulate GI Eval
[2018-02-05] MEDS: LORazepam 1 MG Tablet PO PRN (21:34)
[2018-02-06] MEDS: guaiFENesin/Codeine Syrup 200 MG/20 MG 10 ML UDC PO SCH ×4 (00:51→17:44)
[2018-02-06] MEDS: Melatonin 5 MG Tablet PO PRN (00:56)
[2018-02-06] MEDS: Heparin - SQ 10,000 UNITS/ML Vial SQ SCH ×3 (05:24→21:23)
[2018-02-06 06:15] LABS: Calcium 8.4 mg/dL (8.5-10.1); Carbon Dioxide 34.4 meq/L (21.0-32.0); Magnesium 2.4 mg/dL (1.5-2.5); Potassium 3.4 meq/L (3.5-5.1)
[2018-02-06] MEDS: hydrALAZINE 25 MG Tablet PO SCH ×3 (09:18→17:44)
[2018-02-06] MEDS: Pantoprazole Sodium 20 MG DR Tablet PO SCH (09:18)
[2018-02-06] MEDS: Spironolactone 25 MG Tablet PO SCH (09:18)
[2018-02-06] MEDS: predniSONE 10 MG Tablet PO SCH ×3 (09:18→17:44)
[2018-02-06] MEDS: amLODIPine 10 MG Tablet PO SCH (09:18)
[2018-02-06] MEDS: Budesonide-Formoterol 160/4.5 MCG 6 GM Inhaler INH SCH ×2 (09:19→21:24)
--- NOTE | 2018-02-06 09:32 | P.PNIM ---
Subjective Interval history: f/u; respiratory failure/ dysphagia in no acute distress. on two liters of oxygen via N/C. still with some dysphagia. no fever. has occasional cough. Physical Exam Vital signs: Vital Signs 02/05/18 12:00 02/05/18 13:33 02/05/18 16:00 Temperature 97.6 F 97.3 F L Pulse Rate 97 H 76 91 H Respiratory Rate 18 16 18 Blood Pressure 176/92 H 120/71 Pulse Oximetry 96 96 02/05/18 19:51 02/05/18 20:00 02/06/18 00:00 Temperature 97.4 F L 97.7 F Pulse Rate 69 81 82 Respiratory Rate 18 18 18 Blood Pressure 125/71 132/79 Pulse Oximetry 97 97 95 02/06/18 07:40 02/06/18 08:00 Temperature 97.2 F L Pulse Rate 85 72 Respiratory Rate 22 19 Blood Pressure 178/100 H Pulse Oximetry 96 98 Intake & Output 02/05/18 02/06/18 02/06/18 18:59 06:59 18:59 Intake Total 870 / 870 340 / 340 Balance 870 / 870 340 / 340 Weight 70 kg Intake: IV 150 / 150 100 / 100 Levaquin 750 mg Premix Inj 150 150 / 150 ML @ 100 mls/hr IV.SIG Q24H [facility] Rx#:[id number] Oral 720 / 720 240 / 240 Other: # Voids 4 2 Date of Last Bowel Movement 02/03/18 - Constitutional no acute distress - Routine Respiratory Exam Present: prolonged expiratory phase, wheezes - Routine Cardiovascular Exam Present: RRR - Routine Abdominal Exam Present: soft - Routine Extremities Exam Comments: no pedal edema. - Routine Neurological Exam Present: alert, oriented X3 Results - Labs CBC & Chem 7: 02/05/18 05:46 02/06/18 05:30 Laboratory Results - last 24 hr 02/05/18 02/05/18 02/05/18 05:46 11:12 16:54 WBC Differential Manual diff final Seg Neuts % (Manual) 78 H Band Neuts % (Manual) 2 Lymphocytes % (Manual) 12 Monocytes % (Manual) 6 Myelocytes % (Man) 2 H Abs Neuts (Manual) 16.6 H Platelet Estimate Normal Platelet Morphology Normal RBC Morphology Normal Sodium Potassium Chloride Carbon Dioxide Anion Gap BUN Creatinine Estimated GFR POC Glucose 330 H 408 H Random Glucose Calcium Magnesium 02/05/18 02/06/18 02/06/18 21:14 05:30 05:36 WBC Differential Seg Neuts % (Manual) Band Neuts % (Manual) Lymphocytes % (Manual) Monocytes % (Manual) Myelocytes % (Man) Abs Neuts (Manual) Platelet Estimate Platelet Morphology RBC Morphology Sodium 140 Potassium 3.4 L Chloride 100 Carbon Dioxide 34.4 H Anion Gap 6 BUN 23 H Creatinine 0.69 Estimated GFR 89 POC Glucose 355 H 29 L* Random Glucose 185 H D Calcium 8.4 L Magnesium 2.4 02/06/18 02/06/18 02/06/18 05:43 05:44 05:46 WBC Differential Seg Neuts % (Manual) Band Neuts % (Manual) Lymphocytes % (Manual) Monocytes % (Manual) Myelocytes % (Man) Abs Neuts (Manual) Platelet Estimate Platelet Morphology RBC Morphology Sodium Potassium Chloride Carbon Dioxide Anion Gap BUN Creatinine Estimated GFR POC Glucose 454 H* 446 H 350 H Random Glucose Calcium Magnesium 02/06/18 02/06/18 02/06/18 06:23 06:24 07:50 WBC Differential Seg Neuts % (Manual) Band Neuts % (Manual) Lymphocytes % (Manual) Monocytes % (Manual) Myelocytes % (Man) Abs Neuts (Manual) Platelet Estimate Platelet Morphology RBC Morphology Sodium Potassium Chloride Carbon Dioxide Anion Gap BUN Creatinine Estimated GFR POC Glucose 283 H 253 H 186 H Random Glucose Calcium Magnesium Microbiology 02/03/18 14:20 Sputum - Expectorated Sputum Gram Stain - Final 02/03/18 14:20 Sputum - Expectorated Sputum Sputum Culture - Final Heavy growth normal respiratory [place] Assessment and Plan - Plan Acute on chronic respiratory failure The pt has a history of COPD and asthma. She is on monthly infusions via a port prescribed by her supervisor cartography. Pulmonology consult appreciated. CT showed: Patchy alveolar consolidation noted within the anterior aspect of the right lower lobe as well as the superior aspect of the right middle lobe consistent with probable focal pneumonia. IgE level 1580. Sputum culture with normal [place]. -continue Symbicort. -IV Levaquin. -continue prednisone. -incentive spirometry, PT eval. -oxygen and nebs. -Robitussin AC/ Tessalon Perles for cough. DM Status post insulin drip. Exacerbated by steroids. Glucose has been fluctuating. -Levemir 30 units BID, aspart 5 units with meals, ISS. Adjust regimen as needed. Dysphagia Chronic. Appreciated speech therapy evaluation. -GI consult appreciated; barium swallow pending; EGD when more stable. -antiemetics as needed. HTN On HCTZ as an outpt. -hold HCTZ as hyponatremic and with hypokalemia. -clonidine as needed. -added amlodipine 10 mg daily, hydralazine 25 mg TID. Hypokalemia Likely s/t HCTZ. -d/c'ed HCTZ. -follow BMP and replete as needed. Anxiety S/t respiratory distress. -Ativan as needed. PPx: Heparin Discharge Planning: home with C within the next 48 hrs pending GI/ pulmonary f/u and recommendations.
[2018-02-06] MEDS: Insulin Detemir Inj 1,000 UNIT/10 ML Vial SQ SCH ×2 (10:46→21:22)
[2018-02-06] MEDS: Insulin NovoLOG Aspart Correctional Sugar Inj SQ SCH ×4 (10:46→21:22)
--- NOTE | 2018-02-06 11:16 | FL ---
EXAM DATE: 02/06/2018 10:36 AM EDT AGE/SEX: 52 years / Female INDICATIONS: Dysphagia. CLINICAL DATA: This is the patient's subsequent encounter. Patient reports that signs and symptoms h ave been present for 2 weeks and indicates a pain score of 0/10. MEDICAL/SURGICAL HISTORY: Chronic obstructive pulmonary disease. Diabetes. Hypertension. Car cinoma, ovarian. . Infusaport. COMPARISON: No prior exams available for comparison. FLUORO TIME: 2.0 IMAGE COUNT: 18 FINDINGS: Patient swallowed thin barium suspension. Multiple spot images of the esophagus were obtained. Examin ation is somewhat limited due to patient discomfort with swallowing. No focal narrowing or filling de fect identified in the esophagus. Patient swallowed a barium tablet. The tablet stuck for approximate ly 20 seconds in the mid thoracic esophagus before passing into the stomach. CONCLUSION: Mild delay in the passage of barium tablet to the area of the mid thoracic esophagus. No gross strict ure or mass identified. Electronically signed by: Epi Goetz MD 02/06/2018 11:15 AM EDT
--- NOTE | 2018-02-06 12:50 | P.PNGI ---
Subjective Interval history: Alert NAD Ba Swallow did not reveal obstruction mild delat transit suggestive of slow motility disorder....Still wheezing slightly better wants to go home Physical Exam Vital signs: Vital Signs 02/05/18 13:33 02/05/18 16:00 02/05/18 19:51 Temperature 97.3 F L Pulse Rate 76 91 H 69 Respiratory Rate 16 18 18 Blood Pressure 120/71 Pulse Oximetry 96 97 02/05/18 20:00 02/06/18 00:00 02/06/18 07:40 Temperature 97.4 F L 97.7 F Pulse Rate 81 82 85 Respiratory Rate 18 18 22 Blood Pressure 125/71 132/79 Pulse Oximetry 97 95 96 02/06/18 08:00 Temperature 97.2 F L Pulse Rate 72 Respiratory Rate 19 Blood Pressure 178/100 H Pulse Oximetry 98 Intake & Output 02/05/18 02/06/18 02/06/18 18:59 06:59 18:59 Intake Total 870 / 870 340 / 340 Balance 870 / 870 340 / 340 Weight 70 kg Intake: IV 150 / 150 100 / 100 Levaquin 750 mg Premix Inj 150 150 / 150 ML @ 100 mls/hr IV.SIG Q24H [facility] Rx#:[id number] Oral 720 / 720 240 / 240 Other: # Voids 4 2 Date of Last Bowel Movement 02/03/18 02/06/18 - Routine Respiratory Exam Present: wheezes - Routine Cardiovascular Exam Present: S1, S2 - Routine Abdominal Exam Present: soft, normoactive bowel sounds Comments: nontender Results - Labs CBC & Chem 7: 02/05/18 05:46 02/06/18 05:30 Laboratory Results - last 24 hr 02/05/18 02/05/18 02/06/18 16:54 21:14 05:30 Sodium 140 Potassium 3.4 L Chloride 100 Carbon Dioxide 34.4 H Anion Gap 6 BUN 23 H Creatinine 0.69 Estimated GFR 89 POC Glucose 408 H 355 H Random Glucose 185 H D Calcium 8.4 L Magnesium 2.4 02/06/18 02/06/18 02/06/18 05:36 05:43 05:44 Sodium Potassium Chloride Carbon Dioxide Anion Gap BUN Creatinine Estimated GFR POC Glucose 29 L* 454 H* 446 H Random Glucose Calcium Magnesium 11/03/18 11/03/18 11/03/18 05:46 06:23 06:24 Sodium Potassium Chloride Carbon Dioxide Anion Gap BUN Creatinine Estimated GFR POC Glucose 350 H 283 H 253 H Random Glucose Calcium Magnesium 02/06/18 02/06/18 07:50 11:47 Sodium Potassium Chloride Carbon Dioxide Anion Gap BUN Creatinine Estimated GFR POC Glucose 186 H 228 H Random Glucose Calcium Magnesium Microbiology 02/03/18 14:20 Sputum - Expectorated Sputum Gram Stain - Final 02/03/18 14:20 Sputum - Expectorated Sputum Sputum Culture - Final Heavy growth normal respiratory [place] - Imaging Impressions Barium Swallow X-Ray 02/06/18 00:00 CONCLUSION: Mild delay in the passage of barium tablet to the area of the mid thoracic esophagus. No gross stricture or mass identified. Assessment and Plan (1) Dysphagia Status: Acute Code(s): R13.10 - Dysphagia, unspecified - Plan advise speech pathology evaluation as well discussed EGD as out w DR Quinones after DC and stable piulmonary ramsey.....cont ppi thanks
--- NOTE | 2018-02-06 18:32 | P.PNPL ---
Subjective Interval history: 52 YOWF with severe COPD, Br asthma, steroid dependent 20-40 mg daily Has worsening sob, wheezing Cough, difficult to expactorate no Fever Breathing little better today ba swallow did't show obst Anxious to go home Physical Exam Vital signs: Vital Signs 02/05/18 19:51 02/05/18 20:00 02/06/18 00:00 Temperature 97.4 F L 97.7 F Pulse Rate 69 81 82 Respiratory Rate 18 18 Blood Pressure 125/71 132/79 Pulse Oximetry 97 97 95 02/06/18 07:40 02/06/18 08:00 02/06/18 12:00 Temperature 97.2 F L 98.3 F Pulse Rate 85 72 85 Respiratory Rate 22 19 17 Blood Pressure 178/100 H 158/91 H Pulse Oximetry 96 98 97 02/06/18 13:07 02/06/18 16:00 Temperature 97.3 F L Pulse Rate 87 86 Respiratory Rate 19 19 Blood Pressure 166/94 H Pulse Oximetry 96 Intake & Output 02/05/18 02/06/18 02/06/18 18:59 06:59 18:59 Intake Total 870 / 870 340 / 340 150 / 150 Balance 870 / 870 340 / 340 150 / 150 Weight 70 kg Intake: IV 150 / 150 100 / 100 150 / 150 Levaquin 750 mg Premix Inj 150 150 / 150 150 / 150 ML @ 100 mls/hr IV.SIG Q24H [facility] Rx#:[id number] Oral 720 / 720 240 / 240 Other: # Voids 4 2 Date of Last Bowel Movement 02/03/18 02/06/18 GENERAL: MBMN Mild sob SKIN: Warm and dry. HEAD: Normocephalic. EYES: No scleral icterus. No injection or drainage. NECK: Supple, trachea midline. No JVD or lymphadenopathy. CARDIOVASCULAR: Regular rate and rhythm without murmurs, gallops, or rubs. RESPIRATORY: Breath sounds equal bilaterally. No accessory muscle use. Exp rhonchi GASTROINTESTINAL: Abdomen soft, non-tender, nondistended. MUSCULOSKELETAL: No cyanosis, or edema. BACK: Nontender without obvious deformity. No CVA tenderness. Assessment and Plan - Plan IMPRESSION: Bronchial astma exac Severe COPD HTN DM Anxiety PLAN: Prednisone 20 mg tid Monitor BS Aerosol nebs Symicort 2 puffs bid SQ Heparin Robitussin Ac cough syp Monitor BP OOB and ambulate DC plans for home
[2018-02-06] MEDS: LORazepam 1 MG Tablet PO PRN (21:30)
[2018-02-07] MEDS: guaiFENesin/Codeine Syrup 200 MG/20 MG 10 ML UDC PO SCH ×2 (00:57→05:01)
[2018-02-07] MEDS: Heparin - SQ 10,000 UNITS/ML Vial SQ SCH (05:01)
[2018-02-07 05:59] LABS: Baso # (Auto) 0.1 th/mm3 (0.0-0.2); Baso % (Auto) 0.8 % (0.0-2.0); Eos % (Auto) 0.2 % (0.0-4.0); Hemoglobin 13.5 gm/dL (11.6-15.3); Lymph # (Auto) 3.2 th/mm3 (1.0-4.8); Lymph % (Auto) 19.7 % (9.0-44.0); Mean Corpuscular HGB Conc 34.7 % (32.0-36.0); Mean Corpuscular Volume 89.4 fL (80.0-100.0); Mean Platelet Volume 8.5 fL (7.0-11.0); Mono # (Auto) 1.3 th/mm3 (0.0-0.9); Mono % (Auto) 8.1 % (0.0-8.0); Neut # (Auto) 11.7 th/mm3 (1.8-7.7); Neut % (Auto) 71.2 % (16.0-70.0); Platelet Count 293 th/mm3 (150-450); Red Blood Count 4.37 mil/mm3 (4.00-5.30); Red Cell Distribution Width 13.1 % (11.6-17.2); White Blood Count 16.4 th/mm3 (4.0-11.0)
[2018-02-07] MEDS: Insulin NovoLOG Aspart Correctional Sugar Inj SQ SCH (07:37)
[2018-02-07] MEDS: predniSONE 10 MG Tablet PO SCH (08:45)
[2018-02-07] MEDS: Insulin Detemir Inj 1,000 UNIT/10 ML Vial SQ SCH (08:45)
[2018-02-07] MEDS: hydrALAZINE 25 MG Tablet PO SCH (08:45)
[2018-02-07] MEDS: amLODIPine 10 MG Tablet PO SCH (08:45)
[2018-02-07] MEDS: Pantoprazole Sodium 20 MG DR Tablet PO SCH (08:45)
[2018-02-07] MEDS: Spironolactone 25 MG Tablet PO SCH (08:45)
[2018-02-07] MEDS: Budesonide-Formoterol 160/4.5 MCG 6 GM Inhaler INH SCH (08:46)
--- NOTE | 2018-02-07 08:53 | P.DCO ---
- Physical Therapy Order: Evaluate and treat - Home Health Nursing Order: Medical education, Signs/symptoms of disease process, Medication education-adverse effect, Nursing assessment with vital signs - Case Management Consult Yes - Certification I have seen patient Daly Alejandre on 02/07/18. My clinical findings support the need for the requested home health care services because: Patient has SOB I certify that my clinical findings support that this patient is homebound because: Hx COPD - exertion dyspnea/weakness
--- NOTE | 2018-02-07 08:53 | P.PNIM ---
Subjective Interval history: f/u; respiratory failure/ dysphagia in no acute distress. has some wheezing but she says that overall she's better and wants to go home. Physical Exam Vital signs: Vital Signs 02/06/18 12:00 02/06/18 13:07 02/06/18 16:00 Temperature 98.3 F 97.3 F L Pulse Rate 85 87 86 Respiratory Rate 17 19 19 Blood Pressure 158/91 H 166/94 H Pulse Oximetry 97 96 02/06/18 19:59 02/06/18 20:00 02/07/18 07:41 Temperature 97.3 F L Pulse Rate 90 87 75 Respiratory Rate 18 17 18 Blood Pressure 128/77 Pulse Oximetry 97 97 97 02/07/18 08:00 Temperature 97.1 F L Pulse Rate 71 Respiratory Rate 18 Blood Pressure 152/80 H Pulse Oximetry 98 Intake & Output 02/06/18 02/07/18 02/07/18 19:59 06:59 18:59 Intake Total Balance Weight Intake: IV Levaquin 750 mg Premix Inj 150 ML @ 100 mls/hr IV.SIG Q24H [facility] Rx#:[id number] Oral Other: # Voids Date of Last Bowel Movement # Bowel Movements - Constitutional no acute distress - Routine Respiratory Exam Present: wheezes - Routine Cardiovascular Exam Present: RRR - Routine Abdominal Exam Present: soft - Routine Extremities Exam Comments: no pedal edema. - Routine Neurological Exam Present: alert, oriented X3 Results - Labs CBC & Chem 7: 02/07/18 05:15 02/06/18 05:30 Laboratory Results - last 24 hr 02/06/18 02/06/18 02/06/18 11:47 15:33 20:10 WBC RBC Hgb Hct MCV MCH MCHC RDW Plt Count MPV Prelim Diff (Auto) Neut % (Auto) Lymph % (Auto) [place] % (Auto) Eos % (Auto) Baso % (Auto) Neut # (Auto) Lymph # (Auto) [place] # (Auto) Eos # (Auto) Baso # (Auto) Differential Comment POC Glucose 228 H 245 H 379 H 02/07/18 02/07/18 05:15 07:34 WBC 16.4 H RBC 4.37 Hgb 13.5 Hct 39.0 MCV 89.4 MCH 31.0 MCHC 34.7 RDW 13.1 Plt Count 293 MPV 8.5 Prelim Diff (Auto) Slide review pending Neut % (Auto) 71.2 H Lymph % (Auto) 19.7 [place] % (Auto) 8.1 H Eos % (Auto) 0.2 Baso % (Auto) 0.8 Neut # (Auto) 11.7 H Lymph # (Auto) 3.2 [place] # (Auto) 1.3 H Eos # (Auto) 0.0 Baso # (Auto) 0.1 Differential Comment . POC Glucose 119 H - Imaging Impressions Barium Swallow X-Ray 02/06/18 00:00 CONCLUSION: Mild delay in the passage of barium tablet to the area of the mid thoracic esophagus. No gross stricture or mass identified. - Procedures none Assessment and Plan - Plan Acute on chronic respiratory failure The pt has a history of COPD and asthma. 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 Pulmonology consult appreciated. CT showed: Patchy alveolar consolidation noted within the anterior aspect of the right lower lobe as well as the superior aspect of the right middle lobe consistent with probable focal pneumonia. IgE level 1580. Sputum culture with normal [place]. -continue Symbicort. -switch to po Levaquin. -continue prednisone. -incentive spirometry, PT eval. -oxygen and nebs; patient is on home oxygen and has nebulizer. -Joseph AC/ Sangeetha Bacon for cough. DM Status post insulin drip. Exacerbated by steroids. Glucose has been fluctuating. -Levemir 30 units BID, aspart 5 units with meals, ISS. Adjust regimen as needed. Dysphagia Chronic. Appreciated speech therapy evaluation. -GI consult appreciated; barium swallow with no stricture or mass- f/u with GI as outpatient. HTN On HCTZ as an outpt. -hold HCTZ as hyponatremic and with hypokalemia. -clonidine as needed. -added amlodipine 10 mg daily, hydralazine 25 mg TID. Hypokalemia-replaced. Likely s/t HCTZ. -d/c'ed HCTZ. -follow BMP and replete as needed. Anxiety S/t respiratory distress. -Ativan as needed. PPx: Heparin Discharge Planning: home with [facility] today. see med list. f/u; pcp, pulmonary and GI. d/w the patient and RN. Dye was consulted prior to discharge. time spent 35 min.
--- NOTE | 2018-02-07 09:05 | P.DS ---
Date of admission: 01/30/18 00:59 Primary care physician: Michael Johnson MD Brief History from admission: The patient is a 52-year-old female with a past medical history of COPD and asthma who is also on infusion therapy for her breathing and on home oxygen who is presenting to the hospital with shortness of breath and coughing. The patient says that she had a port placed about 6 months ago when she receives infusions every 3 days. She says the infusions are helping about 90% of her symptoms. She is unsure what the infusion is and for what condition exactly she is being treated for. She says that she is also on 2 L of home oxygen. She says starting on Thursday her symptoms started to get worse. She has developed a persistent cough accompanied with chest tightness. She denies any mucus production. The cough is keeping her up at night. She has had fevers at home but has not measured them. She says she has been taking a lot of medications at home but they have not been helping. She has been using her nebulizer 7 times a day. She has increased her prednisone to 20 mg twice daily. She says in general her breathing status goes back and forth. She says she has been hospitalized several times this year. She denies any symptoms of a UTI. Discussed with nursing. DS: Medications - Discharge Medications Prescriptions: albuterol sulfate 2 puff INHALATION Q6H PRN #1 ea PRN Reason: sob amlodipine [Norvasc] 10 mg PO DAILY 30 Days #30 tab codeine-guaifenesin 10 ml PO Q6HR 5 Days ml hydralazine 25 mg PO TID 30 Days #90 tab levofloxacin [Levaquin] 500 mg PO DAILY 5 Days #5 tab DS: Summary Hospital Course: Acute on chronic respiratory failure The pt has a history of COPD and asthma. 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 Pulmonology consult appreciated. CT showed: Patchy alveolar consolidation noted within the anterior aspect of the right lower lobe as well as the superior aspect of the right middle lobe consistent with probable focal pneumonia. IgE level 1580. Sputum culture with normal [place]. -continue Symbicort. -switch to po Levaquin. -continue prednisone. -incentive spirometry, PT eval. -oxygen and nebs; patient is on home oxygen and has nebulizer. -Joseph ABDI/ Sangeetha Bacon for cough. DM Status post insulin drip. Exacerbated by steroids. Glucose has been fluctuating. -Levemir 30 units BID, aspart 5 units with meals, ISS. Adjust regimen as needed. Dysphagia Chronic. Appreciated speech therapy evaluation. -GI consult appreciated; barium swallow with no stricture or mass- f/u with GI as outpatient. HTN On HCTZ as an outpt. -hold HCTZ as hyponatremic and with hypokalemia. -clonidine as needed. -added amlodipine 10 mg daily, hydralazine 25 mg TID. Hypokalemia-replaced. Likely s/t HCTZ. -d/c'ed HCTZ. -follow BMP and replete as needed. Anxiety S/t respiratory distress. -Ativan as needed. - Time Spent with Patient Total time spent providing and/or coordinating discharge services: Greater than 30 minutes (time spent 35 min.) - Quality: VTE Deep Vein Thrombosis/Pulmonary Embolism Present on Admission: No Exam Vital signs: Vital Signs 02/06/18 12:00 02/06/18 13:07 02/06/18 16:00 Temperature 98.3 F 97.3 F L Pulse Rate 85 87 86 Respiratory Rate 17 19 19 Blood Pressure 158/91 H 166/94 H Pulse Oximetry 97 96 02/06/18 19:59 02/06/18 20:00 02/07/18 07:41 Temperature 97.3 F L Pulse Rate 90 87 75 Respiratory Rate 18 17 18 Blood Pressure 128/77 Pulse Oximetry 97 97 97 02/07/18 08:00 Temperature 97.1 F L Pulse Rate 71 Respiratory Rate 18 Blood Pressure 152/80 H Pulse Oximetry 98 Intake & Output 02/06/18 02/07/18 02/07/18 19:59 06:59 18:59 Intake Total Balance Weight Intake: IV Levaquin 750 mg Premix Inj 150 ML @ 100 mls/hr IV.SIG Q24H [facility] Rx#:[id number] Oral Other: # Voids Date of Last Bowel Movement # Bowel Movements - Constitutional no acute distress - Routine Respiratory Exam Present: wheezes - Routine Cardiovascular Exam Present: RRR - Routine Abdominal Exam Present: soft - Routine Extremities Exam Comments: no pedal edema. - Routine Neurological Exam Present: alert, oriented X3 Results Procedures completed during hospitalization: none Labs on day of discharge: Labs from last 24 hours 02/07/18 02/07/18 02/06/18 07:34 05:15 20:10 WBC 16.4 H RBC 4.37 Hgb 13.5 Hct 39.0 MCV 89.4 MCH 31.0 MCHC 34.7 RDW 13.1 Plt Count 293 MPV 8.5 Prelim Diff (Auto) Slide review pending Neut % (Auto) 71.2 H Lymph % (Auto) 19.7 [place] % (Auto) 8.1 H Eos % (Auto) 0.2 Baso % (Auto) 0.8 Neut # (Auto) 11.7 H Lymph # (Auto) 3.2 [place] # (Auto) 1.3 H Eos # (Auto) 0.0 Baso # (Auto) 0.1 WBC Differential Pending Differential Comment . POC Glucose 119 H 379 H 02/06/18 02/06/18 15:33 11:47 WBC RBC Hgb Hct MCV MCH MCHC RDW Plt Count MPV Prelim Diff (Auto) Neut % (Auto) Lymph % (Auto) [place] % (Auto) Eos % (Auto) Baso % (Auto) Neut # (Auto) Lymph # (Auto) [place] # (Auto) Eos # (Auto) Baso # (Auto) WBC Differential Differential Comment POC Glucose 245 H 228 H - Impressions ITS Impressions Chest CT 01/30/18 11:54 CONCLUSION: 1. Patchy alveolar consolidation is noted within the anterior aspect of the right lower lobe as well as the superior aspect of the right middle lobe consistent with probable focal pneumonia. Clinical correlation is recommended. 2. Cardiomegaly. 3. Enlarged fatty liver. Chest X-Ray 02/01/18 18:38 CONCLUSION: Mild basilar atelectasis. Change in position of right [id number] since January 29. Barium Swallow X-Ray 02/06/18 00:00 CONCLUSION: Mild delay in the passage of barium tablet to the area of the mid thoracic esophagus. No gross stricture or mass identified. Discharge Plan - Discharge Disposition Patient Disposition: W/Home Health Service - Discharge Condition Condition: Stable - Physicians Team Primary Care Provider: Michael Johnson Attending Provider: Jalen Echevarria Other Providers: Sloan Hein MD ; Oralia Barton ; Dion Bae MD
[2018-02-07 11:07] LABS: Lymphocytes 17 % (9-44); Metamyelocytes 1 % (0-1); Monocytes 7 % (0-8); Myelocytes 1 % (0-0)
[2018-02-07 11:08] LABS: Platelet Estimate Normal (Normal); Platelet Morphology Normal (Normal)
[2018-02-07] MEDS ORDERED: Heparin Central Flush 100 UNIT/ML 5 ML Vial IV.FLUSH ONE (12:00)
== END 2018-02-07 11:34 | disposition home health service (06) ==
LOC: NEPE 17:33 → NEDA 01-30 00:59 → N07 01-30 04:13 → HIMC 01-30 14:55 → N07 01-31 18:13
PROVIDERS: ADMIT Internal Medicine; ATTEND Internal Medicine